=== PATIENT | male | born 1965 | race Caucasian/White ===

== ENCOUNTER → 2016-10-19 | Outpatient (CLI) | payer OTHER ==
[~2016-10-19] MED LIST: 'TENORMIN50 MG PO; ASPIRIN LITE C325 MG PO; AUGMENTIN 875 M1 TAB PO; BACTRIM DS 8001 TA1 PO; BENADRYL50 MG PO; Carafate1 GM PO; DARVOCET N 1001 TAB PO; FLOMAX0.4 MG PO; FUROSEMIDE20 M1 PO; HYDROCODONE BIT1 T11 PO; KLOR-CON M1010 ME1 PO; LASIX20 MG PO; LEVOFLOXACIN500 MG PO; Motrin,Rufen400 MG PO; Motrin,Rufen800 MG PO; NORCO 5-325 TA1 EACH PO; PANTOPRAZOLE SO40 MG PO; PERCOCET 325 MG1 TA2 PO; POTASSIUM CHLO20 ME4 PO; SEPTRA DS 800 M1 TAB PO; SYMBICORT1 AE1 INH; SYMBICORT1 AER INH; VICODIN 500 MG-1 TAB PO; VICODIN ES 7501 TAB PO; ZESTRIL10 MG PO; ZOFRAN ODT4 MG SL; ZOFRAN4 MG PO
[2016-10-19 11:47] LABS: HEMATOCRIT 40.9 % (42.0-52.0); MEAN CELL VOLUME 97.1 fl (80.0-94.0); MEAN CORPUSCULAR HGB 33.3 pg (27.0-31.0); MEAN CORPUSCULAR HGB CONC 34.2 g/dl (33.0-37.0); MEAN PLATELET VOLUME 10.7 fl (9.6-12.3); RED BLOOD COUNT 4.21 10*6/uL (4.50-5.90); RED CELL DISTRI WIDTH 15.6 % (0-14.5); WHITE BLOOD COUNT 4.4 10*3/uL (4.8-10.8)
[2016-10-19 12:02] LABS: COL/EPI 122 SECONDS (86-157)
[2016-10-19 12:08] LABS: INTERNATIONAL NORM RATIO 1.1 (2.0-3.5)
== END | disposition home or self-care (01) ==
LOC: LAB 11:08
PROVIDERS: Family Medicine
DX: D69.6 Thrombocytopenia, unspecified (principal); R79.1 Abnormal coagulation profile

== ENCOUNTER → 2016-12-14 | Outpatient (CLI) | payer OTHER ==
[2016-12-14 13:40] LABS: HEMATOCRIT 39.5 % (42.0-52.0); HEMOGLOBIN 13.6 g/dl (14.0-18.0); MEAN CELL VOLUME 100.5 fl (80.0-94.0); MEAN CORPUSCULAR HGB 34.6 pg (27.0-31.0); MEAN CORPUSCULAR HGB CONC 34.4 g/dl (33.0-37.0); MEAN PLATELET VOLUME 11.4 fl (9.6-12.3); RED BLOOD COUNT 3.93 10*6/uL (4.50-5.90); RED CELL DISTRI WIDTH 14.1 % (0-14.5); WHITE BLOOD COUNT 4.2 10*3/uL (4.8-10.8)
[2016-12-14 14:00] LABS: ALBUMIN 3.1 gm/dl (3.1-4.5); ALKALINE PHOSPHATASE 182 U/L (45-117); BILIRUBIN, DIRECT 0.4 mg/dL (0.0-0.2); BUN 7 mg/dl (7-24); CHLORIDE 106 mmol/L (98-107); CREATININE 1.07 mg/dL (0.70-1.30); POTASSIUM 3.6 mmol/L (3.5-5.1); SGOT/AST 38 IU/L (3-35); SGPT/ALT 27 U/L (12-78); SODIUM 143 mmol/L (136-145); TOTAL PROTEIN 6.7 gm/dL (6.4-8.2)
== END | disposition home or self-care (01) ==
LOC: LAB 12:56
PROVIDERS: Internal Medicine Gastroenterology
DX: K70.31 Alcoholic cirrhosis of liver with ascites (principal); D64.9 Anemia, unspecified

== ENCOUNTER → 2016-12-22 | Outpatient (CLI) | payer OTHER | END | disposition home or self-care (01) | LOC: US 03:01 | DX: K70.31 Alcoholic cirrhosis of liver with ascites (principal); R10.11 Right upper quadrant pain ==

== ENCOUNTER → 2017-01-07 | Outpatient (CLI) | payer OTHER | END | disposition home or self-care (01) | LOC: MRI 08:00 | DX: E27.9 Disorder of adrenal gland, unspecified (principal) ==

== ENCOUNTER 2017-05-04 16:27 | Emergency (ER) | payer OTHER ==
[~2017-05-04] VITALS: Ht 180.3 cm; Wt 129.3 kg
[2017-05-04] MEDS ORDERED: FLONASE ALLERG9.9 ML NAS (19:16)
[2017-05-04] MEDS ORDERED: PROAIR HFA8.5 GM INH (19:16)
[2017-05-04] MEDS ORDERED: TESSALON PERLE100 M1 PO (19:16)
== END 2017-05-04 19:26 | disposition home or self-care (01) ==
LOC: ED 16:27
DX: B34.9 Viral infection, unspecified (principal); Z88.8 Allergy status to other drugs, medicaments and biological substances; Z79.899 Other long term (current) drug therapy; Z90.89 Acquired absence of other organs

== ENCOUNTER 2017-05-13 20:24 | Inpatient (IN) | payer OTHER ==
[~2017-05-13] VITALS: Ht 182.8 cm; Wt 141.8 kg
--- NOTE | ~2017-05-13 | WRIGHTHP ---
[place], [place] PATIENT HISTORY AND PHYSICAL EXAM NAME: ILEANA CASTORENA [facility] #: [id number] UNIT #: [id number] ROOM: 504 DOCTOR: GARETT KAMINSKI MD BIRTHDATE: [birth year] DOS: 05/14/2017 HISTORY OF PRESENT ILLNESS: 1. The patient is a 52-year-old gentleman with a past medical history of normocytic anemia, mixed hyperlipidemia, hyperbilirubinemia along with elevated AST and alkaline phosphatase. 3. History of neutropenia and thrombocytopenia. 4. Diabetes mellitus and hyperglycemia. 5. History of alcohol dependence. 6. Benign essential hypertension. The patient presented to [facility] with feeling unwell for about 20 days. He felt like he had flu symptoms. The patient also had developed shortness of breath which was not resolving with outpatient treatment. Finally, the patient was seen in the Emergency Department and recommended for admission for acute exacerbation of COPD. The patient has been treated with corticosteroids and antibiotics along with bronchodilators and his breathing is improving. REVIEW OF SYSTEMS: LUNGS: Increasing shortness of breath. GASTROINTESTINAL: No nausea, vomiting, diarrhea or constipation. CARDIOVASCULAR: No chest pains or palpitations. FAMILY AND SOCIAL HISTORY: The patient lives at home with his and children. Denies smoking cigarettes, alcohol and drug abuse, but he does have history of alcohol dependence. FAMILY HISTORY: Noncontributory. HOME MEDICATIONS: The patient takes albuterol inhaler, Flonase, Tessalon Perles, Lasix, ibuprofen, multivitamins and potassium at home. ALLERGIES: Known allergies to lisinopril, which is AYE inhibitor. PHYSICAL EXAMINATION: GENERAL: Alert and oriented x 3, in no visible distress. VITAL SIGNS: Blood pressure 128/54, breathing 20 times per minute, heart rate ranging between 98-108 beats per minute, afebrile. HEENT AND NECK: Extraocular movements are intact. Sclerae are anicteric. Oral mucosa is moist and clean. No obvious facial weakness. Neck is supple without any lymphadenopathy. No thyromegaly. No JVD. No carotid arterial bruits. LUNGS: Clear to auscultation. No wheezing. No rhonchi. CARDIOVASCULAR SYSTEM: Heart rate is regular in rate and rhythm. S1 and S2 normally audible. No significant murmur or any other abnormal cardiac sounds. ABDOMEN: Soft, nontender. No obvious organomegaly. Bowel sounds are present. No obvious herniation. EXTREMITIES: Without significant cyanosis or edema. Warm to touch. CENTRAL NERVOUS SYSTEM: Alert and oriented x 3. Cranial nerves II-XII are intact. Speech is normal. The patient is able to move all extremities. Normal [place], [place] PATIENT HISTORY AND PHYSICAL EXAM NAME: ILEANA CASTORENA UNIT #: [id number] ROOM: [facility] DOCTOR: GARETT KAMINSKI MD BIRTHDATE: [birth year] muscle strength. Deep tendon reflexes are equal on both sides. Plantars were downgoing. LABORATORY DATA: X-ray of the lumbar spine showed no acute abnormality. Chest x-ray showing minimal left basilar atelectasis. Hemoglobin 13.5, no leukocytosis, lactic acid level was normal. IMPRESSION: Acute exacerbation of underlying disease with increased shortness of breath and failure of outpatient treatment for last 20 days. The patient was admitted and started on treatment with corticosteroids, oxygen, nebulizer treatments with DuoNeb and antibiotic and his breathing started improving. 1. Left basilar atelectasis versus pneumonia to be treated with ____, incentive spirometry and antibiotics. History of alcohol dependence. I will keep him on thiamine and follow closely. The patient is not claiming any recent alcohol use. 2. History of benign essential hypertension. Blood pressures will be monitored and treated accordingly. 3. History of nicotine smoke dependence and alcohol dependence. The patient encouraged to stop and will be monitored closely. GARETT KAMINSKI MD CM:HISPHYS:PATIENT HISTORY AND PHYSICAL EXAMINATION 39 18 GARETT KAMINSKI MD 05/14/172218 interface
--- NOTE | ~2017-05-13 | EKG ---
[place], [place] ELECTROCARDIOGRAM REPORT NAME: ILEANA CASTORENA UNIT #: [id number] ROOM: 504 DOCTOR: TAYO ELLIS,VIC BIRTHDATE: [birth year] DOS: 05/14/2017 TIME: 2159 hours. IMPRESSION: 1. Sinus rhythm. 2. Sinus tachycardia. 3. Poor R-wave progression. 4. Nonspecific ST-T changes. 5. Normal QT interval. VIC CR MD CM:EKGRPT:ELECTROCARDIOGRAM REPORT [id number] VIC CR MD
--- NOTE | ~2017-05-13 | CON ---
[place], [place] REPORT OF CONSULTATION [id number] UN[facility] #: [id number] ROOM: 504 DOCTOR: MICHELLE SAUCEDA MDLALITA BIRTHDATE: [birth year] DOS: 05/16/2017 PULMONARY CONSULTATION, EVALUATION, AND MANAGEMENT REASON FOR CONSULTATION: Assess the patient for abnormal respiratory symptoms. HISTORY OF PRESENT ILLNESS: This is a 52-year-old white male with a past medical history of chronic obesity and other medical issues. He has been admitted to the hospital under the care of Dr. Heath. The patient stated that he had developed acute flu-like symptoms about 3 weeks ago prior to admission to the hospital. The symptoms started on 04/24/2017 with general body aches and pains, nonproductive cough with fever and fatigue. The patient stated that symptoms have never been resolved. He was noted with increased shortness of breath, which has been noted progressive. The coughing has been described intermittently. Denies symptoms of chest pain or hemoptysis with that. The coughing has been noted with only small amount of sputum expectoration at times. Denies symptoms of chest trauma. The patient has been currently treated for the acute exacerbation of COPD under the care of Dr. Heath. REVIEW OF SYSTEMS: CONSTITUTIONAL: He does have symptoms of fatigue and tiredness that remains persistent, but there were no symptoms of fevers and chills reported. EYES: Denies any burning, redness, or tenderness. EARS, NOSE, AND THROAT SYMPTOMS. No sore throat, otalgia, postnasal drainage, epistaxis, or ear discharge. CARDIOVASCULAR: Denies any edema of the lower extremities, any pain of the lower extremities, any symptoms of angina or palpitations. GASTROINTESTINAL: Chronic severe obesity. Denies symptoms of nausea, vomiting, diarrhea, dysphagia, abdominal pain, hematemesis, melena, hematochezia, or any abnormal weight loss history. GENITOURINARY: No dysuria, suprapubic pain, or hematuria. SKIN: Denies lesions or rashes. CENTRAL NERVOUS SYSTEM: No dizziness, headache, diplopia, or syncopal episode. Remaining systems were reviewed, they were noted all negative. PAST MEDICAL HISTORY: 1. COPD. 2. Nephrolithiasis. 3. Liver cirrhosis. 4. Chronic thrombocytopenia. 5. Essential hypertension. 6. Severe obesity. 7. History of nicotine abuse. 8. Past history of alcohol use as well. SOCIAL HISTORY: The patient is , has one child, lives at home. He used to drink alcohol, which has been discontinued over a year ago. Tobacco use noted from age of [age] years old as half a pack of cigarettes per day that has been discontinued as per patient 3 years ago. Denies any occupation related [place], [place] REPORT OF CONSULTATION NAME: ILEANA CASTORENA UNIT #: [id number] ROOM: [facility] DOCTOR: LALITA COLLAZO MD BIRTHDATE: [birth year] pulmonary exposure. PAST SURGICAL HISTORY: Essentially no major surgeries. MEDICATIONS: The medication, which has been used by the patient at this time noted use of DuoNeb q.6h., Lasix 20 mg p.o. daily, ibuprofen, and Colace. DRUG ALLERGIES: LISINOPRIL. PHYSICAL EXAMINATION: GENERAL: A 52-year-old male who has been currently noted to be awake and alert, without any acute distress. Height of 6 feet, weight of 226 pounds, BMI 30.7. VITAL SIGNS: Normal temperature since admission, respiratory rate of 18-20, heart rate of 96-114, blood pressure 156/76-144/84. Oxygen saturation of the patient recorded as 97% saturation on room air at rest. HEENT: Chronic obesity. Head was atraumatic. Eye nonicterus. Decreased posterior pharyngeal space. NECK: Supple. CARDIOVASCULAR: S1, S2 audible. LUNGS: Moderate decreased breath sounds noted in the lungs bilaterally. ABDOMEN: Noted with chronic obesity. Bowel sounds present. Without any tenderness. CENTRAL NERVOUS SYSTEM: Cranial nerves 2-12 intact. MUSCULOSKELETAL: The patient was noted without any acute deformities. SKIN: Visible skin, no lesions or rashes. LABORATORY DATA: The CBC on 05/13/2017 of the patient was essentially noted, platelet count of 64,000, hemoglobin 13.5, hematocrit 39.3, normal WBC count. Nasal washings, influenza A and B of the patient on admission of 05/13/2017 was negative. INR of the patient 1.2 on admission. The LFTs, which was done on the patient on admission, AST 48, alkaline phosphatase 241. BMP for this patient, normal BUN and creatinine. The blood culture from 05/13/2017 shows no bacterial growth. The CBC of the patient this morning essentially noted almost the same except platelet count mildly further decreased to 58,000. IMAGING STUDIES: Chest x-ray of the patient, 2-view, which was done on 05/13/2017 was noted with small area of basilar atelectasis in the left lower lung. There was no finding of congestive heart failure, large pleural fluid, or any abnormal pulmonary infiltration. IMPRESSION: 1. The patient who has been admitted to the hospital with acute viral bronchitis leading to exacerbation of chronic obstructive pulmonary disease without any active bacterial infection noted at this time. 2. Chronic severe obesity with suspected obstructive sleep apnea disorder as well. 3. Cough, wheezing, and shortness of breath related to exacerbation of chronic obstructive pulmonary disease has not been improved significantly. 4. History of chronic thrombocytopenia with history of liver cirrhosis. 5. Chronic obesity as well. [place], [place] REPORT OF CONSULTATION NAME: ILEANA CASTORENA UNIT #: [id number] ROOM: [facility] DOCTOR: LALITA COLLAZO MD BIRTHDATE: [birth year] 6. History of past nicotine use and alcohol use. PLAN OF TREATMENT: Start the patient on Solu-Medrol 40 mg b.i.d. dosing. Continue bronchodilators every 6 hours for the patient at the present time and q. 4 hours p.r.n. will be ordered. Bronchodilator for the patient will be continued with oxygen supplementation if the oxygen saturation noted less than 92%. Other supportive therapy, plan of management as well. Usual care. Additional treatment changes will be done on the patient based on the progression of the illness. Reassess the patient tomorrow morning. Obtain another chest x-ray of the patient, PA and lateral view in the morning for the small area of atelectasis noted in the left lower, most likely secondary to mucus impaction. Mucinex 600 mg p.o. b.i.d. will be ordered as well to help clear secretions. If the finding currently remains persistent, additional change in treatment will be ordered accordingly. Thanks for allowing me to participate in the care of this patient. LALITA MARTINEZ MD CM:CONSTR:REPORT OF CONSULTATION 1801 05/17/17 0241 interface
--- NOTE | ~2017-05-13 | PR ---
[place], [place] PROGRESS NOTE NAME: ILEANA CASTORENA UNIT #: [id number] ROOM: 504 DOCTOR: LALITA COLLAZO MD BIRTHDATE: [birth year] DOS: 05/17/2017 PULMONARY PROGRESS NOTE SUBJECTIVE: He has been noted comfortable, reported reduction in symptoms of shortness of breath. There was no chest pain. The cough has been noted without any sputum expectoration. Denies any wheezing. OBJECTIVE: VITAL SIGNS: For the patient, which have been recorded, showed normal temperature, respiratory rate of 18, heart rate 86, blood pressure 161/91. Pulse oxygen saturation of the patient recorded on room air 94% saturation. HEENT: Chronic severe obesity. Head was atraumatic. NECK: Supple. CARDIOVASCULAR: S1, S2 audible. LUNGS: The patient was noted without any wheezing or crackles at the present time. ABDOMEN: Soft, nontender. EXTREMITIES: The patient was noted with chronic obesity with mild edema. IMAGING STUDIES: Chest x-ray of the patient, PA and lateral view, was done today, review shows evidence of small bilateral pleural fluid noted little bit larger on the left than the right side; however, the fluid was still not noted significant amount. IMPRESSION: 1. The patient with current resolution of the respiratory symptoms with reduction of coughing, shortness of breath, with bilateral small pleural fluid, most likely related to the congestive heart failure. 2. Acute tracheobronchitis with exacerbation of chronic obstructive pulmonary disease. 3. Chronic thrombocytopenia related to liver cirrhosis. PLAN OF MANAGEMENT: Diuretic therapy of the patient will be continued. The dose of Solu-Medrol will be decreased to 40 mg daily dosing. Cardiac workup of the patient with echocardiogram noted in progress at this time. Monitor results of this. All other supportive plan of management and care plan. [place], [place] PROGRESS NOTE NAME: ILEANA CASTORENA UNIT #: [id number] ROOM: 504 DOCTOR: LALITA COLLAZO MD BIRTHDATE: [birth year] LALITA MARTINEZ MD CM:PNTRANS 1817 LALITA SAUCEDA MD 05/18/17 0316 interface
--- NOTE | ~2017-05-13 | PR ---
[place], [place] PROGRESS NOTE [id number] UN[facility] #: [id number] ROOM: 504 DOCTOR: GARETT KAMINSKI MD BIRTHDATE: [birth year] DOS: 05/15/2017 SUBJECTIVE: The patient continues to complain of shortness of breath and feels that he has pneumonia, which was not seen on the chest x-ray at admission. PHYSICAL EXAMINATION: VITAL SIGNS: Blood pressure /72, heart rate 103 beats per minute, breathing 20 times per minute, temperature 98.5 degrees Fahrenheit. GENERAL: Generalized weakness and obesity. HEENT AND NECK: Exam within normal limits. CARDIOVASCULAR SYSTEM: Heart rate is regular in rate and rhythm. S1 and S2 normally audible. LUNGS: Clear to auscultation. ABDOMEN: Soft, nontender. No obvious organomegaly. Bowel sounds are present. EXTREMITIES: Without significant cyanosis or edema. IMPRESSION: 1. The patient continues to complain of acute back pain since he fell down and x-rays did not show any fractures. The patient was given multiple medications Dilaudid IV, which has relieved his pain. The patient was also given Toradol injection and earlier on Tylenol with ibuprofen. 2. Acute exacerbation of chronic obstructive pulmonary disease, which is being treated and the patient appears to be breathing much better and his chest x-ray did not show any significant abnormality except for some atelectasis at the left base. The patient thinks he has pneumonia like last time he had and was not seen on the chest x-ray. I will consult Dr. Dillon, the senior care assistant to evaluate the patient. 3. Benign essential hypertension. Blood pressures are being monitored and treated and staying normal. 4. Type 2 diabetes mellitus. Blood sugars were controlled. 5. Nicotine and alcohol dependence in the past. The patient has been encouraged to stay off. GARETT KAMINSKI MD CM:PNTRANS 1709 GARETT KAMINSKI MD 05/16/17 0108 interface
[~2017-05-13 20:24] MED LIST changes: +FLONASE ALLERG9.9 ML NAS; +PROAIR HFA8.5 GM INH; +TESSALON PERLE100 M1 PO
[2017-05-13 20:45] VITALS: BP 130/85
[2017-05-13 21:57] VITALS: BP 134/83
[2017-05-13 22:03] LABS: BASO % 0.3 % (0.0-1.0); EOS # 0.2 10*3/uL (0.0-0.4); EOS % 2.7 % (1.0-4.0); HEMATOCRIT 39.3 % (42.0-52.0); HEMOGLOBIN 13.5 g/dl (14.0-18.0); LYMPH % 13.3 % (27.0-41.0); MEAN CELL VOLUME 97.3 fl (80.0-94.0); MEAN CORPUSCULAR HGB 33.4 pg (27.0-31.0); MEAN CORPUSCULAR HGB CONC 34.4 g/dl (33.0-37.0); MEAN PLATELET VOLUME 10.3 fl (9.6-12.3); MONO # 0.7 10*3/uL (0.1-1.0); MONO % 9.4 % (3.0-9.0); NEUT # 5.5 10*3/uL (2.3-7.9); PLATELET COUNT AUTOMATED 64 10*3/uL (130-400); RED BLOOD COUNT 4.04 10*6/uL (4.50-5.90); RED CELL DISTRI WIDTH 14.3 % (0-14.5); WHITE BLOOD COUNT 7.4 10*3/uL (4.8-10.8)
[2017-05-13 22:08] VITALS: BP 141/81
[2017-05-13 22:15] LABS: ACT PARTIAL THROMBO TIME 30.5 SECONDS (20.8-31.5); INTERNATIONAL NORM RATIO 1.2 (2.0-3.5)
[2017-05-13 22:17] LABS: ALBUMIN 3.2 gm/dl (3.1-4.5); ALKALINE PHOSPHATASE 241 U/L (45-117); BUN 9 mg/dl (7-24); CHLORIDE 105 mmol/L (98-107); CREATININE 1.23 mg/dL (0.70-1.30); LIPASE 394 U/L (73-393); POTASSIUM 3.6 mmol/L (3.5-5.1); SGOT/AST 49 IU/L (3-35); SGPT/ALT 34 U/L (12-78); SODIUM 141 mmol/L (136-145); TOTAL PROTEIN 6.7 gm/dL (6.4-8.2)
[2017-05-13 22:19] LABS: TROPONIN I < 0.015 ng/ml (<0.045)
[2017-05-13 22:46] VITALS: BP 156/87
[2017-05-13 23:48] VITALS: BP 149/76
[2017-05-14 00:43] VITALS: BP 146/86
[2017-05-14 01:25] VITALS: BP 147/66
[2017-05-14] MEDS ORDERED: CENTRUM SILVER1 EACH PO (02:00)
[2017-05-14 08:00] VITALS: BP 160/74
[2017-05-14 12:00] VITALS: BP 143/58
[2017-05-14 16:00] VITALS: BP 128/54
[2017-05-14 20:00] VITALS: BP 129/50
[2017-05-15] VITALS: BP 153/61
[2017-05-15 08:00] VITALS: BP 156/76
[2017-05-15 12:00] VITALS: BP 145/80
[2017-05-15 16:00] VITALS: BP 143/72
[2017-05-15 20:00] VITALS: BP 156/83
[2017-05-16] VITALS: BP 137/79
[2017-05-16 06:58] LABS: BASO % 0.2 % (0.0-1.0); EOS # 0.3 10*3/uL (0.0-0.4); HEMATOCRIT 36.5 % (42.0-52.0); HEMOGLOBIN 12.3 g/dl (14.0-18.0); LYMPH % 20.2 % (27.0-41.0); MEAN CELL VOLUME 98.6 fl (80.0-94.0); MEAN CORPUSCULAR HGB 33.2 pg (27.0-31.0); MEAN CORPUSCULAR HGB CONC 33.7 g/dl (33.0-37.0); MEAN PLATELET VOLUME 10.9 fl (9.6-12.3); MONO # 0.5 10*3/uL (0.1-1.0); MONO % 10.2 % (3.0-9.0); NEUT # 3.2 10*3/uL (2.3-7.9); PLATELET COUNT AUTOMATED 58 10*3/uL (130-400); RED CELL DISTRI WIDTH 14.1 % (0-14.5)
[2017-05-16 08:00] VITALS: BP 144/84
[2017-05-16 12:00] VITALS: BP 156/87
[2017-05-16 14:16] VITALS: BP 169/83
[2017-05-16 16:00] VITALS: BP 139/73
[2017-05-16 20:00] VITALS: BP 130/71
[2017-05-17] VITALS: BP 160/81
[2017-05-17 07:03] LABS: EOS % 0.2 % (1.0-4.0); HEMATOCRIT 39.5 % (42.0-52.0); HEMOGLOBIN 13.5 g/dl (14.0-18.0); LYMPH # 0.5 10*3/uL (1.3-4.4); LYMPH % 11.1 % (27.0-41.0); MEAN CELL VOLUME 96.6 fl (80.0-94.0); MEAN CORPUSCULAR HGB CONC 34.2 g/dl (33.0-37.0); MEAN PLATELET VOLUME 11.4 fl (9.6-12.3); MONO # 0.1 10*3/uL (0.1-1.0); MONO % 2.1 % (3.0-9.0); PLATELET COUNT AUTOMATED 68 10*3/uL (130-400); RED BLOOD COUNT 4.09 10*6/uL (4.50-5.90); RED CELL DISTRI WIDTH 13.4 % (0-14.5); WHITE BLOOD COUNT 4.7 10*3/uL (4.8-10.8)
[2017-05-17 07:28] LABS: CHLORIDE 102 mmol/L (98-107); POTASSIUM 4.9 mmol/L (3.5-5.1); SODIUM 134 mmol/L (136-145)
[2017-05-17 07:36] LABS: ALBUMIN 2.8 gm/dl (3.1-4.5); ALKALINE PHOSPHATASE 212 U/L (45-117); BUN 19 mg/dl (7-24); CREATININE 1.18 mg/dL (0.70-1.30); SGOT/AST 39 IU/L (3-35); SGPT/ALT 33 U/L (12-78); TOTAL PROTEIN 6.6 gm/dL (6.4-8.2)
[2017-05-17 12:00] VITALS: BP 161/91
[2017-05-17 16:00] VITALS: BP 147/78
[2017-05-17 20:00] VITALS: BP 159/90
== END 2017-05-17 23:10 | disposition left against medical advice (07) | DRG 191 ==
LOC: ED 20:24 → 5E 05-14 00:32 → EDHOLD 05-14 00:32 → 5E 05-14 00:49
PROVIDERS: Internal Medicine; Nurse Practitioner Family
DX: J44.0 Chronic obstructive pulmonary disease with (acute) lower respiratory infection (principal); J90 Pleural effusion, not elsewhere classified; D69.6 Thrombocytopenia, unspecified; E87.1 Hypo-osmolality and hyponatremia; K70.30 Alcoholic cirrhosis of liver without ascites; J98.11 Atelectasis; J44.1 Chronic obstructive pulmonary disease with (acute) exacerbation; B34.9 Viral infection, unspecified; Z78.9 Other specified health status; I10 Essential (primary) hypertension; R60.0 Localized edema; R73.9 Hyperglycemia, unspecified; R74.0 Nonspecific elevation of levels of transaminase and lactic acid dehydrogenase [LDH]; D53.9 Nutritional anemia, unspecified; K80.20 Calculus of gallbladder without cholecystitis without obstruction; E78.2 Mixed hyperlipidemia; F10.21 Alcohol dependence, in remission; E66.9 Obesity, unspecified; J20.8 Acute bronchitis due to other specified organisms; Z53.21 Procedure and treatment not carried out due to patient leaving prior to being seen by health care provider; Z88.8 Allergy status to other drugs, medicaments and biological substances; Z79.899 Other long term (current) drug therapy; Z87.442 Personal history of urinary calculi; Z87.01 Personal history of pneumonia (recurrent); Z68.30 Body mass index [BMI] 30.0-30.9, adult

== ENCOUNTER 2017-12-24 11:21 | Emergency (ER) | payer OTHER ==
[~2017-12-24] VITALS: Wt 106.6 kg
[~2017-12-24 11:21] MED LIST changes: +CENTRUM SILVER1 EACH PO
[2017-12-24] MEDS ORDERED: CIPRO500 MG PO (11:28)
[2017-12-26] MEDS ORDERED: CEPHALEXIN500 M1 PO (00:28)
== END 2017-12-24 12:00 | disposition home or self-care (01) ==
LOC: ED 11:21
DX: S91.331A Puncture wound without foreign body, right foot, initial encounter (principal); Z23 Encounter for immunization; J44.9 Chronic obstructive pulmonary disease, unspecified; I10 Essential (primary) hypertension; F17.200 Nicotine dependence, unspecified, uncomplicated; Z87.442 Personal history of urinary calculi; Z88.8 Allergy status to other drugs, medicaments and biological substances; Z79.899 Other long term (current) drug therapy; X58.XXXA Exposure to other specified factors, initial encounter; Y93.89 Activity, other specified; Y92.89 Other specified places as the place of occurrence of the external cause; Y99.8 Other external cause status

== ENCOUNTER 2018-07-28 12:19 | Emergency (ER) | payer OTHER ==
[~2018-07-28] VITALS: Ht 180.3 cm; Wt 133.8 kg
[~2018-07-28 12:19] MED LIST changes: +CEPHALEXIN500 M1 PO; +CIPRO500 MG PO
== END 2018-07-28 14:29 | disposition home or self-care (01) ==
LOC: ED 12:19
DX: M77.32 Calcaneal spur, left foot (principal); Z90.89 Acquired absence of other organs; Z88.8 Allergy status to other drugs, medicaments and biological substances

== ENCOUNTER 2019-03-05 22:05 | Emergency (ER) | payer OTHER ==
[~2019-03-05] VITALS: Wt 127.0 kg
[2019-03-05] MEDS ORDERED: IBU800 MG PO (22:37)
[2019-03-05] MEDS ORDERED: PENICILLIN VK500 MG PO (22:37)
== END 2019-03-05 23:15 | disposition home or self-care (01) ==
LOC: ED 22:05
DX: K04.7 Periapical abscess without sinus (principal); I10 Essential (primary) hypertension; Z87.891 Personal history of nicotine dependence; Z88.8 Allergy status to other drugs, medicaments and biological substances

== ENCOUNTER 2019-11-23 19:40 | Inpatient (IN) | payer SELFPAY ==
[~2019-11-23] VITALS: Ht 180.3 cm; Wt 131.2 kg
[~2019-11-23 19:40] MED LIST changes: +IBU800 MG PO; +PENICILLIN VK500 MG PO
[2019-11-23 19:43] VITALS: BP 177/79
[2019-11-23 20:08] LABS: BASO % 0.4 % (0.0-1.0); EOS % 0.6 % (1.0-4.0); HEMATOCRIT 38.1 % (42.0-52.0); LYMPH # 0.5 10*3/uL (1.3-4.4); MEAN CELL VOLUME 93.8 fl (80.0-94.0); MEAN CORPUSCULAR HGB 30.3 pg (27.0-31.0); MEAN CORPUSCULAR HGB CONC 32.3 g/dl (33.0-37.0); MEAN PLATELET VOLUME 10.9 fl (9.6-12.3); MONO # 0.6 10*3/uL (0.1-1.0); MONO % 12.5 % (3.0-9.0); NEUT # 3.7 10*3/uL (2.3-7.9); NEUT % 76.3 % (47.0-73.0); PLATELET COUNT AUTOMATED 70 10*3/uL (130-400); RED BLOOD COUNT 4.06 10*6/uL (4.50-5.90); RED CELL DISTRI WIDTH 19.3 % (0-14.5); WHITE BLOOD COUNT 4.8 10*3/uL (4.8-10.8)
[2019-11-23 20:17] LABS: ACT PARTIAL THROMBO TIME 29.2 SECONDS (20.0-32.1); INTERNATIONAL NORM RATIO 1.2 (2.0-3.5)
[2019-11-23 20:23] LABS: ALBUMIN 3.2 gm/dl (3.1-4.5); ALKALINE PHOSPHATASE 166 U/L (45-117); BUN 10 mg/dl (7-24); CHLORIDE 107 mmol/L (98-107); CREATININE 1.01 mg/dL (0.70-1.30); POTASSIUM 3.9 mmol/L (3.5-5.1); SGOT/AST 79 IU/L (3-35); SGPT/ALT 40 U/L (12-78); SODIUM 137 mmol/L (136-145); TOTAL PROTEIN 6.9 gm/dL (6.4-8.2)
[2019-11-23 20:24] LABS: TROPONIN I 0.018 ng/ml (<0.045)
[2019-11-23 21:02] VITALS: BP 155/85
[2019-11-23 23:00] VITALS: BP 157/88
[2019-11-24 00:12] VITALS: BP 160/87
[2019-11-24 00:50] VITALS: BP 149/86
[2019-11-24 08:00] VITALS: BP 148/68
[2019-11-24 12:00] VITALS: BP 147/66
[2019-11-24 16:00] VITALS: BP 137/70
[2019-11-24 16:07] LABS: BODY FLUID WBC 226 /uL
[2019-11-24 17:30] LABS: BF LYMPHOCYTES 11 %; BF MACROPHAGES 70 %; BF MESOTHELIALS 4 %; BF NEUTROPHILS 15 %
[2019-11-24 20:00] VITALS: BP 167/73
[2019-11-25] VITALS: BP 132/73
[2019-11-25 06:00] LABS: ALBUMIN 2.4 gm/dl (3.1-4.5); ALKALINE PHOSPHATASE 132 U/L (45-117); BUN 11 mg/dl (7-24); CHLORIDE 106 mmol/L (98-107); CHOLESTEROL 99 mg/dL (<200); CREATININE 1.15 mg/dL (0.70-1.30); FREE T4 1.18 ng/dl (0.76-1.46); HDL CHOLESTEROL 27 mg/dl (40-60); LDL CHOLESTEROL 52 mg/dL (9-159); POTASSIUM 3.8 mmol/L (3.5-5.1); SGOT/AST 54 IU/L (3-35); SGPT/ALT 31 U/L (12-78); SODIUM 135 mmol/L (136-145); TOTAL PROTEIN 5.5 gm/dL (6.4-8.2); TRIGLYCERIDES 98 mg/dl (<150); VLDL CHOLESTEROL 20 mg/dL (6-40)
[2019-11-25 06:05] LABS: BASO % 0.3 % (0.0-1.0); EOS # 0.2 10*3/uL (0.0-0.4); EOS % 4.1 % (1.0-4.0); HEMATOCRIT 32.6 % (42.0-52.0); LYMPH # 0.6 10*3/uL (1.3-4.4); LYMPH % 15.2 % (27.0-41.0); MEAN CELL VOLUME 96.2 fl (80.0-94.0); MEAN CORPUSCULAR HGB 30.7 pg (27.0-31.0); MEAN CORPUSCULAR HGB CONC 31.9 g/dl (33.0-37.0); MEAN PLATELET VOLUME 11.3 fl (9.6-12.3); MONO # 0.5 10*3/uL (0.1-1.0); MONO % 12.5 % (3.0-9.0); NEUT # 2.5 10*3/uL (2.3-7.9); NEUT % 67.6 % (47.0-73.0); PLATELET COUNT AUTOMATED 51 10*3/uL (130-400); RED BLOOD COUNT 3.39 10*6/uL (4.50-5.90); WHITE BLOOD COUNT 3.7 10*3/uL (4.8-10.8)
[2019-11-25 08:00] VITALS: BP 128/60
[2019-11-25 12:00] VITALS: BP 131/69
[2019-11-25 16:00] VITALS: BP 116/63
[2019-11-25 20:00] VITALS: BP 116/62
[2019-11-25 21:39] LABS: BUN 8 mg/dl (7-24); CHLORIDE 108 mmol/L (98-107); CREATININE 1.04 mg/dL (0.70-1.30); POTASSIUM 3.9 mmol/L (3.5-5.1); SODIUM 137 mmol/L (136-145)
[2019-11-26] VITALS: BP 113/48
[2019-11-26 06:15] LABS: BASO % 0.3 % (0.0-1.0); EOS # 0.2 10*3/uL (0.0-0.4); EOS % 6.7 % (1.0-4.0); HEMATOCRIT 33.2 % (42.0-52.0); LYMPH # 0.5 10*3/uL (1.3-4.4); LYMPH % 16.4 % (27.0-41.0); MEAN CELL VOLUME 95.7 fl (80.0-94.0); MEAN CORPUSCULAR HGB 30.3 pg (27.0-31.0); MEAN CORPUSCULAR HGB CONC 31.6 g/dl (33.0-37.0); MEAN PLATELET VOLUME 11.4 fl (9.6-12.3); MONO # 0.4 10*3/uL (0.1-1.0); MONO % 11.8 % (3.0-9.0); NEUT # 2.1 10*3/uL (2.3-7.9); NEUT % 64.5 % (47.0-73.0); PLATELET COUNT AUTOMATED 60 10*3/uL (130-400); RED BLOOD COUNT 3.47 10*6/uL (4.50-5.90); RED CELL DISTRI WIDTH 19.1 % (0-14.5); WHITE BLOOD COUNT 3.3 10*3/uL (4.8-10.8)
[2019-11-26 06:23] LABS: ALBUMIN 2.3 gm/dl (3.1-4.5); BUN 8 mg/dl (7-24); CHLORIDE 106 mmol/L (98-107); CREATININE 0.95 mg/dL (0.70-1.30); POTASSIUM 3.6 mmol/L (3.5-5.1); SGOT/AST 50 IU/L (3-35); SGPT/ALT 29 U/L (12-78); SODIUM 136 mmol/L (136-145)
[2019-11-26 06:25] LABS: ALKALINE PHOSPHATASE 167 U/L (45-117); TOTAL PROTEIN 5.4 gm/dL (6.4-8.2)
[2019-11-26 08:00] VITALS: BP 112/60
[2019-11-26 12:00] VITALS: BP 132/66
[2019-11-26 16:00] VITALS: BP 124/64
[2019-11-26 20:00] VITALS: BP 127/57
[2019-11-27] VITALS: BP 132/61
[2019-11-27 06:41] LABS: ALBUMIN 2.3 gm/dl (3.1-4.5); BASO % 0.5 % (0.0-1.0); BUN 8 mg/dl (7-24); CHLORIDE 108 mmol/L (98-107); CREATININE 0.91 mg/dL (0.70-1.30); EOS # 0.3 10*3/uL (0.0-0.4); EOS % 6.8 % (1.0-4.0); HEMATOCRIT 33.2 % (42.0-52.0); LYMPH # 0.7 10*3/uL (1.3-4.4); LYMPH % 19.3 % (27.0-41.0); MEAN CELL VOLUME 93.3 fl (80.0-94.0); MEAN CORPUSCULAR HGB 30.9 pg (27.0-31.0); MEAN CORPUSCULAR HGB CONC 33.1 g/dl (33.0-37.0); MEAN PLATELET VOLUME 11.2 fl (9.6-12.3); MONO # 0.4 10*3/uL (0.1-1.0); MONO % 11.7 % (3.0-9.0); NEUT # 2.2 10*3/uL (2.3-7.9); NEUT % 61.2 % (47.0-73.0); PLATELET COUNT AUTOMATED 73 10*3/uL (130-400); POTASSIUM 3.7 mmol/L (3.5-5.1); RED BLOOD COUNT 3.56 10*6/uL (4.50-5.90); RED CELL DISTRI WIDTH 19.1 % (0-14.5); SGOT/AST 52 IU/L (3-35); SGPT/ALT 29 U/L (12-78); SODIUM 137 mmol/L (136-145); TOTAL PROTEIN 5.4 gm/dL (6.4-8.2); WHITE BLOOD COUNT 3.7 10*3/uL (4.8-10.8)
[2019-11-27 06:42] LABS: ALKALINE PHOSPHATASE 150 U/L (45-117)
[2019-11-27 08:00] VITALS: BP 139/68
[2019-11-27 12:00] VITALS: BP 140/63
[2019-11-27 16:00] VITALS: BP 129/57
[2019-11-27 20:00] VITALS: BP 154/64
[2019-11-28] VITALS: BP 143/72
[2019-11-28 06:45] LABS: BASO % 0.3 % (0.0-1.0); EOS # 0.2 10*3/uL (0.0-0.4); EOS % 6.2 % (1.0-4.0); LYMPH # 0.6 10*3/uL (1.3-4.4); LYMPH % 17.1 % (27.0-41.0); MEAN CELL VOLUME 96.3 fl (80.0-94.0); MEAN CORPUSCULAR HGB 30.3 pg (27.0-31.0); MEAN CORPUSCULAR HGB CONC 31.5 g/dl (33.0-37.0); MONO # 0.4 10*3/uL (0.1-1.0); MONO % 11.2 % (3.0-9.0); NEUT # 2.3 10*3/uL (2.3-7.9); NEUT % 64.9 % (47.0-73.0); PLATELET COUNT AUTOMATED 76 10*3/uL (130-400); RED BLOOD COUNT 3.53 10*6/uL (4.50-5.90); WHITE BLOOD COUNT 3.6 10*3/uL (4.8-10.8)
[2019-11-28 07:23] LABS: ALBUMIN 2.3 gm/dl (3.1-4.5); ALKALINE PHOSPHATASE 151 U/L (45-117); BUN 9 mg/dl (7-24); CHLORIDE 107 mmol/L (98-107); CREATININE 0.94 mg/dL (0.70-1.30); POTASSIUM 3.8 mmol/L (3.5-5.1); SGOT/AST 49 IU/L (3-35); SGPT/ALT 31 U/L (12-78); SODIUM 136 mmol/L (136-145); TOTAL PROTEIN 5.4 gm/dL (6.4-8.2)
[2019-11-28 08:00] VITALS: BP 134/68
[2019-11-28 08:08] LABS: HEP B CORE AB, IGM Negative (Negative); HEPATITIS B SURFACE AG Negative (Negative); HEPATITIS C VIRUS ANTIBODY <0.1 s/co (0.0-0.9)
[2019-11-28 12:00] VITALS: BP 126/64
[2019-11-28 16:00] VITALS: BP 141/73
[2019-11-28 20:00] VITALS: BP 144/64
[2019-11-29] VITALS: BP 133/59
[2019-11-29 06:53] LABS: BASO % 0.7 % (0.0-1.0); EOS # 0.2 10*3/uL (0.0-0.4); EOS % 5.1 % (1.0-4.0); HEMATOCRIT 33.8 % (42.0-52.0); LYMPH # 0.7 10*3/uL (1.3-4.4); LYMPH % 16.3 % (27.0-41.0); MEAN CELL VOLUME 94.9 fl (80.0-94.0); MEAN CORPUSCULAR HGB 30.3 pg (27.0-31.0); MEAN PLATELET VOLUME 11.1 fl (9.6-12.3); MONO # 0.6 10*3/uL (0.1-1.0); MONO % 12.6 % (3.0-9.0); NEUT # 2.8 10*3/uL (2.3-7.9); NEUT % 65.1 % (47.0-73.0); PLATELET COUNT AUTOMATED 88 10*3/uL (130-400); RED BLOOD COUNT 3.56 10*6/uL (4.50-5.90); RED CELL DISTRI WIDTH 18.7 % (0-14.5); WHITE BLOOD COUNT 4.4 10*3/uL (4.8-10.8)
[2019-11-29 07:06] LABS: ALBUMIN 2.2 gm/dl (3.1-4.5); ALKALINE PHOSPHATASE 174 U/L (45-117); BUN 11 mg/dl (7-24); CHLORIDE 107 mmol/L (98-107); CREATININE 0.96 mg/dL (0.70-1.30); SGOT/AST 56 IU/L (3-35); SGPT/ALT 31 U/L (12-78); SODIUM 136 mmol/L (136-145); TOTAL PROTEIN 5.4 gm/dL (6.4-8.2)
[2019-11-29 08:00] VITALS: BP 140/66
== END 2019-11-29 13:30 | disposition short-term general hospital (02) | DRG 871 ==
LOC: ED 19:40 → 4E 23:26 → EDHOLD 23:26 → 4E 11-24 00:03
PROVIDERS: Emergency Medicine Emergency Medical Services; Family Medicine; Hospitalist; Internal Medicine; Internal Medicine Critical Care Medicine; Student in an Organized Health Care Education/Training Program; ADMIT Internal Medicine
PROC: 0W9930Z Drainage of Right Pleural Cavity with Drainage Device, Percutaneous Approach (ICD-10-PCS; principal; 2019-11-24)
DX: A41.9 Sepsis, unspecified organism (principal); J18.9 Pneumonia, unspecified organism; J44.1 Chronic obstructive pulmonary disease with (acute) exacerbation; E44.0 Moderate protein-calorie malnutrition; J91.8 Pleural effusion in other conditions classified elsewhere; D61.818 Other pancytopenia; Z68.41 Body mass index [BMI] 40.0-44.9, adult; J44.0 Chronic obstructive pulmonary disease with (acute) lower respiratory infection; E80.6 Other disorders of bilirubin metabolism; R74.8 Abnormal levels of other serum enzymes; I10 Essential (primary) hypertension; E66.01 Morbid (severe) obesity due to excess calories; K74.60 Unspecified cirrhosis of liver; Z88.8 Allergy status to other drugs, medicaments and biological substances; Z87.442 Personal history of urinary calculi; Z79.899 Other long term (current) drug therapy

== ENCOUNTER → 2019-12-26 | Outpatient (CLI) | payer SELFPAY ==
[2019-12-26 14:07] LABS: HEMATOCRIT 33.7 % (42.0-52.0); MEAN CELL VOLUME 94.7 fl (80.0-94.0); MEAN CORPUSCULAR HGB 30.6 pg (27.0-31.0); MEAN CORPUSCULAR HGB CONC 32.3 g/dl (33.0-37.0); MEAN PLATELET VOLUME 9.9 fl (9.6-12.3); RED BLOOD COUNT 3.56 10*6/uL (4.50-5.90); RED CELL DISTRI WIDTH 18.1 % (0-14.5); WHITE BLOOD COUNT 4.9 10*3/uL (4.8-10.8)
[2019-12-26 14:41] LABS: ALBUMIN 3.3 gm/dl (3.1-4.5); BUN 20 mg/dl (7-24); CHLORIDE 100 mmol/L (98-107); CHOLESTEROL 85 mg/dL (<200); CREATININE 1.37 mg/dL (0.70-1.30); POTASSIUM 4.5 mmol/L (3.5-5.1); SGOT/AST 44 IU/L (3-35); SGPT/ALT 33 U/L (12-78); SODIUM 132 mmol/L (136-145); TOTAL PROTEIN 7.8 gm/dL (6.4-8.2); TRIGLYCERIDES 56 mg/dl (<150); VLDL CHOLESTEROL 11 mg/dL (6-40)
[2019-12-26 14:45] LABS: ALKALINE PHOSPHATASE 191 U/L (45-117); CPK 50 U/L (39-308); HDL CHOLESTEROL 32 mg/dl (40-60); LDL CHOLESTEROL 42 mg/dL (9-159)
== END | disposition home or self-care (01) ==
LOC: LAB 13:39
PROVIDERS: ATTEND Family Medicine
DX: E78.00 Pure hypercholesterolemia, unspecified (principal); K74.60 Unspecified cirrhosis of liver; R25.2 Cramp and spasm; M79.10 Myalgia, unspecified site

== ENCOUNTER → 2020-01-29 | Outpatient (CLI) | payer SELFPAY ==
[2020-01-29 11:29] LABS: ALBUMIN 2.7 gm/dl (3.1-4.5); BUN 16 mg/dl (7-24); CHLORIDE 111 mmol/L (98-107); CREATININE 1.26 mg/dL (0.70-1.30); POTASSIUM 4.3 mmol/L (3.5-5.1); SODIUM 138 mmol/L (136-145)
== END | disposition home or self-care (01) ==
LOC: LAB 10:41
PROVIDERS: ATTEND Family Medicine
DX: I10 Essential (primary) hypertension (principal)

== ENCOUNTER → 2020-02-18 | Outpatient (CLI) | payer SELFPAY | END | disposition home or self-care (01) | LOC: LAB 11:16 | PROVIDERS: ATTEND Family Medicine | DX: K72.90 Hepatic failure, unspecified without coma (principal); K74.60 Unspecified cirrhosis of liver ==

== ENCOUNTER → 2020-03-04 | Outpatient (CLI) | payer SELFPAY ==
[2020-03-04 10:33] LABS: ALBUMIN 2.7 gm/dl (3.1-4.5); ALKALINE PHOSPHATASE 170 U/L (45-117); BUN 15 mg/dl (7-24); CHLORIDE 110 mmol/L (98-107); POTASSIUM 4.4 mmol/L (3.5-5.1); SGOT/AST 35 IU/L (3-35); SGPT/ALT 22 U/L (12-78); SODIUM 141 mmol/L (136-145); TOTAL PROTEIN 6.3 gm/dL (6.4-8.2)
== END | disposition home or self-care (01) ==
LOC: LAB 09:42
PROVIDERS: ATTEND Family Medicine
DX: K72.90 Hepatic failure, unspecified without coma (principal); K74.60 Unspecified cirrhosis of liver

== ENCOUNTER 2020-09-02 14:27 | Emergency (ER) | payer SELFPAY ==
[~2020-09-02] VITALS: Ht 180.3 cm; Wt 117.9 kg
== END 2020-09-02 15:37 | disposition home or self-care (01) ==
LOC: ED 14:27
DX: L30.9 Dermatitis, unspecified (principal); L72.0 Epidermal cyst; Z88.8 Allergy status to other drugs, medicaments and biological substances

== ENCOUNTER 2020-09-12 13:57 | Inpatient (IN) | payer SELFPAY ==
[~2020-09-12] VITALS: Ht 180.3 cm; Wt 125.9 kg
[2020-09-12] VITALS (13 sets, daily range): BP systolic 114–138; BP diastolic 48–100
[2020-09-12 18:01] LABS: HEMATOCRIT 24.1 % (42.0-52.0); MEAN CELL VOLUME 79.5 fl (80.0-94.0); MEAN CORPUSCULAR HGB 22.4 pg (27.0-31.0); MEAN CORPUSCULAR HGB CONC 28.2 g/dl (33.0-37.0); MEAN PLATELET VOLUME 11.1 fl (9.6-12.3); PLATELET COUNT AUTOMATED 96 10*3/uL (130-400); RED BLOOD COUNT 3.03 10*6/uL (4.50-5.90); RED CELL DISTRI WIDTH 22.1 % (0-14.5)
[2020-09-12 18:14] LABS: ACT PARTIAL THROMBO TIME 32.5 SECONDS (20.0-32.1); INTERNATIONAL NORM RATIO 1.3 (2.0-3.5)
[2020-09-12 18:20] LABS: ALBUMIN 2.7 gm/dl (3.1-4.5); ALKALINE PHOSPHATASE 155 U/L (45-117); BUN 8 mg/dl (7-24); CHLORIDE 112 mmol/L (98-107); CREATININE 1.25 mg/dL (0.70-1.30); LIPASE 222 U/L (73-393); POTASSIUM 3.8 mmol/L (3.5-5.1); SGOT/AST 28 IU/L (3-35); SGPT/ALT 15 U/L (12-78); SODIUM 141 mmol/L (136-145); TOTAL PROTEIN 6.2 gm/dL (6.4-8.2)
[2020-09-12 18:24] LABS: MICROCYTOSIS SLIGHT; PLATELET SUFFICIENCY LOW (NORMAL); TOTAL CELLS COUNTED 100 #CELLS
[2020-09-12 18:28] LABS: TROPONIN I < 0.015 ng/ml (<0.045)
[2020-09-13] VITALS (13 sets, daily range): BP systolic 101–128; BP diastolic 40–66
[2020-09-13] MEDS ORDERED: LACTULOSE20 GM/30 M PO (01:31)
[2020-09-13] MEDS ORDERED: MAGNESIUM500 MG PO (01:31)
[2020-09-13] MEDS ORDERED: CENTRUM SILVER1 EACH PO (01:32)
[2020-09-13 02:32] LABS: BILIRUBIN Negative (Negative); BLOOD Negative (Negative); CLARITY Clear (Clear); COLOR Dark Yellow (Yellow); GLUCOSE Negative (Negative); KETONE Trace (Negative); LEUKO ESTERASE Negative (Negative); NITRITE Negative (Negative)
[2020-09-13 02:51] LABS: BACTERIA TRACE
[2020-09-13 03:06] LABS: HEMATOCRIT 23.3 % (42.0-52.0); MEAN CELL VOLUME 79.8 fl (80.0-94.0); MEAN CORPUSCULAR HGB 22.9 pg (27.0-31.0); MEAN CORPUSCULAR HGB CONC 28.8 g/dl (33.0-37.0); MEAN PLATELET VOLUME 11.2 fl (9.6-12.3); PLATELET COUNT AUTOMATED 79 10*3/uL (130-400); RED BLOOD COUNT 2.92 10*6/uL (4.50-5.90); RED CELL DISTRI WIDTH 21.4 % (0-14.5); WHITE BLOOD COUNT 2.5 10*3/uL (4.8-10.8)
[2020-09-13 03:24] LABS: INTERNATIONAL NORM RATIO 1.4 (2.0-3.5)
[2020-09-13 03:27] LABS: TOTAL CELLS COUNTED 100 #CELLS
[2020-09-13 03:28] LABS: ALBUMIN 2.3 gm/dl (3.1-4.5); ALKALINE PHOSPHATASE 135 U/L (45-117); BILIRUBIN, DIRECT 0.8 mg/dL (0.0-0.2); BUN 9 mg/dl (7-24); BURR CELLS FEW; CHLORIDE 115 mmol/L (98-107); OVALOCYTES FEW; PLATELET SUFFICIENCY LOW (NORMAL); POTASSIUM 3.8 mmol/L (3.5-5.1); SGOT/AST 22 IU/L (3-35); SGPT/ALT 13 U/L (12-78); SODIUM 144 mmol/L (136-145); TOTAL PROTEIN 5.4 gm/dL (6.4-8.2)
[2020-09-13 10:43] LABS: BASO % 0.4 % (0.0-1.0); EOS # 0.2 10*3/uL (0.0-0.4); HEMATOCRIT 24.4 % (42.0-52.0); LYMPH # 0.4 10*3/uL (1.3-4.4); LYMPH % 14.2 % (27.0-41.0); MEAN CELL VOLUME 80.8 fl (80.0-94.0); MEAN CORPUSCULAR HGB 23.5 pg (27.0-31.0); MEAN CORPUSCULAR HGB CONC 29.1 g/dl (33.0-37.0); MEAN PLATELET VOLUME 10.9 fl (9.6-12.3); MONO # 0.3 10*3/uL (0.1-1.0); MONO % 11.9 % (3.0-9.0); NEUT # 1.7 10*3/uL (2.3-7.9); NEUT % 65.1 % (47.0-73.0); PLATELET COUNT AUTOMATED 85 10*3/uL (130-400); RED BLOOD COUNT 3.02 10*6/uL (4.50-5.90); RED CELL DISTRI WIDTH 20.7 % (0-14.5); WHITE BLOOD COUNT 2.6 10*3/uL (4.8-10.8)
[2020-09-14] VITALS: BP 119/52
[2020-09-14 05:46] LABS: ALBUMIN 2.1 gm/dl (3.1-4.5); ALKALINE PHOSPHATASE 121 U/L (45-117); BUN 9 mg/dl (7-24); CHLORIDE 113 mmol/L (98-107); CREATININE 1.26 mg/dL (0.70-1.30); POTASSIUM 3.6 mmol/L (3.5-5.1); SGOT/AST 23 IU/L (3-35); SGPT/ALT 12 U/L (12-78); SODIUM 141 mmol/L (136-145); TOTAL PROTEIN 5.2 gm/dL (6.4-8.2)
[2020-09-14 05:55] LABS: BASO % 0.3 % (0.0-1.0); EOS # 0.2 10*3/uL (0.0-0.4); EOS % 6.4 % (1.0-4.0); HEMATOCRIT 23.9 % (42.0-52.0); LYMPH # 0.5 10*3/uL (1.3-4.4); LYMPH % 18.3 % (27.0-41.0); MEAN CELL VOLUME 78.4 fl (80.0-94.0); MEAN CORPUSCULAR HGB 23.6 pg (27.0-31.0); MEAN CORPUSCULAR HGB CONC 30.1 g/dl (33.0-37.0); MONO # 0.3 10*3/uL (0.1-1.0); MONO % 10.5 % (3.0-9.0); NEUT # 1.9 10*3/uL (2.3-7.9); NEUT % 64.5 % (47.0-73.0); RED BLOOD COUNT 3.05 10*6/uL (4.50-5.90); RED CELL DISTRI WIDTH 21.1 % (0-14.5)
[2020-09-14 06:44] LABS: PLATELET COUNT AUTOMATED 81 10*3/uL (130-400)
[2020-09-14 08:00] VITALS: BP 110/50
[2020-09-14 12:00] VITALS: BP 120/60
[2020-09-14 16:00] VITALS: BP 116/41
[2020-09-14 20:00] VITALS: BP 101/46; BP 114/58
[2020-09-15] VITALS (12 sets, daily range): BP systolic 105–153; BP diastolic 51–72
[2020-09-15 06:21] LABS: HEMATOCRIT 22.4 % (42.0-52.0); MEAN CELL VOLUME 79.2 fl (80.0-94.0); MEAN CORPUSCULAR HGB 23.7 pg (27.0-31.0); MEAN CORPUSCULAR HGB CONC 29.9 g/dl (33.0-37.0); PLATELET COUNT AUTOMATED 70 10*3/uL (130-400); RED BLOOD COUNT 2.83 10*6/uL (4.50-5.90); RED CELL DISTRI WIDTH 21.4 % (0-14.5); WHITE BLOOD COUNT 2.3 10*3/uL (4.8-10.8)
[2020-09-15 06:51] LABS: ALKALINE PHOSPHATASE 113 U/L (45-117); BUN 11 mg/dl (7-24); CHLORIDE 112 mmol/L (98-107); CREATININE 1.32 mg/dL (0.70-1.30); POTASSIUM 3.9 mmol/L (3.5-5.1); SGOT/AST 24 IU/L (3-35); SGPT/ALT 12 U/L (12-78); SODIUM 141 mmol/L (136-145); TOTAL PROTEIN 4.8 gm/dL (6.4-8.2)
[2020-09-15 07:25] LABS: PLATELET SUFFICIENCY LOW (NORMAL); SCHISTOCYTES FEW; TOTAL CELLS COUNTED 100 #CELLS
[2020-09-16] VITALS: BP 113/64
[2020-09-16 06:54] LABS: ALBUMIN 2.2 gm/dl (3.1-4.5); BUN 13 mg/dl (7-24); CHLORIDE 111 mmol/L (98-107); CREATININE 1.36 mg/dL (0.70-1.30); POTASSIUM 3.9 mmol/L (3.5-5.1); SGOT/AST 24 IU/L (3-35); SGPT/ALT 12 U/L (12-78); SODIUM 142 mmol/L (136-145)
[2020-09-16 06:55] LABS: ALKALINE PHOSPHATASE 105 U/L (45-117); BASO % 0.4 % (0.0-1.0); EOS # 0.2 10*3/uL (0.0-0.4); EOS % 9.3 % (1.0-4.0); HEMATOCRIT 25.1 % (42.0-52.0); LYMPH # 0.4 10*3/uL (1.3-4.4); LYMPH % 17.2 % (27.0-41.0); MEAN CELL VOLUME 79.4 fl (80.0-94.0); MEAN CORPUSCULAR HGB 24.1 pg (27.0-31.0); MEAN CORPUSCULAR HGB CONC 30.3 g/dl (33.0-37.0); MONO # 0.2 10*3/uL (0.1-1.0); MONO % 9.7 % (3.0-9.0); NEUT # 1.4 10*3/uL (2.3-7.9); PLATELET COUNT AUTOMATED 71 10*3/uL (130-400); RED BLOOD COUNT 3.16 10*6/uL (4.50-5.90); RED CELL DISTRI WIDTH 21.2 % (0-14.5); WHITE BLOOD COUNT 2.3 10*3/uL (4.8-10.8)
[2020-09-16 08:00] VITALS: BP 119/78
[2020-09-16] MEDS ORDERED: ALDACTONE25 MG PO (11:45)
[2020-09-16] MEDS ORDERED: FUROSEMIDE40 MG PO (11:45)
[2020-09-16 12:00] VITALS: BP 129/84
== END 2020-09-16 15:00 | disposition home or self-care (01) | DRG 432 ==
LOC: ED 13:57 → EDHOLD 18:51 → 4E 18:51
PROVIDERS: Emergency Medicine; Family Medicine; Student in an Organized Health Care Education/Training Program; ADMIT Internal Medicine; ATTEND Internal Medicine
PROC: 30233N1 Transfusion of Nonautologous Red Blood Cells into Peripheral Vein, Percutaneous Approach (ICD-10-PCS; 2020-09-12)
PROC: 0W9G3ZZ Drainage of Peritoneal Cavity, Percutaneous Approach (ICD-10-PCS; principal; 2020-09-15)
DX: K70.31 Alcoholic cirrhosis of liver with ascites (principal); E43 Unspecified severe protein-calorie malnutrition; R65.11 Systemic inflammatory response syndrome (SIRS) of non-infectious origin with acute organ dysfunction; D62 Acute posthemorrhagic anemia; D61.818 Other pancytopenia; E72.20 Disorder of urea cycle metabolism, unspecified; E87.2 Acidosis; J90 Pleural effusion, not elsewhere classified; F10.20 Alcohol dependence, uncomplicated; F17.210 Nicotine dependence, cigarettes, uncomplicated; E83.41 Hypermagnesemia; I10 Essential (primary) hypertension; Z88.8 Allergy status to other drugs, medicaments and biological substances; Z87.01 Personal history of pneumonia (recurrent); Z87.442 Personal history of urinary calculi; Z79.899 Other long term (current) drug therapy; Z68.38 Body mass index [BMI] 38.0-38.9, adult

== ENCOUNTER → 2020-11-04 | Outpatient (CLI) | payer SELFPAY ==
[~2020-11-04] MED LIST changes: +ALDACTONE25 MG PO; +FUROSEMIDE40 MG PO; +LACTULOSE20 GM/30 M PO; +LEVOFLOXACIN750 M2 PO; +MAGNESIUM500 MG PO
[2020-11-04 09:35] LABS: HEMATOCRIT 30.5 % (42.0-52.0); MEAN CELL VOLUME 88.9 fl (80.0-94.0); MEAN CORPUSCULAR HGB 26.8 pg (27.0-31.0); MEAN CORPUSCULAR HGB CONC 30.2 g/dl (33.0-37.0); MEAN PLATELET VOLUME 10.6 fl (9.6-12.3); RED BLOOD COUNT 3.43 10*6/uL (4.50-5.90); WHITE BLOOD COUNT 3.6 10*3/uL (4.8-10.8)
[2020-11-04 10:23] LABS: ALBUMIN 2.8 gm/dl (3.1-4.5); BUN 12 mg/dl (7-24); CHLORIDE 111 mmol/L (98-107); POTASSIUM 3.9 mmol/L (3.5-5.1); SODIUM 139 mmol/L (136-145)
[2020-11-04 10:26] LABS: ALKALINE PHOSPHATASE 147 U/L (45-117); CREATININE 1.28 mg/dL (0.70-1.30); SGOT/AST 35 IU/L (3-35); SGPT/ALT 19 U/L (12-78); TOTAL PROTEIN 6.1 gm/dL (6.4-8.2)
== END | disposition home or self-care (01) ==
LOC: LAB 09:16
PROVIDERS: ATTEND Family Medicine
DX: K74.60 Unspecified cirrhosis of liver (principal); D64.9 Anemia, unspecified

== ENCOUNTER 2020-12-19 19:50 | Emergency (ER) | payer SELFPAY ==
[~2020-12-19 19:50] MED LIST changes: -LEVOFLOXACIN750 M2 PO
[2020-12-19 21:03] LABS: BASO % 0.2 % (0.0-1.0); EOS # 0.1 10*3/uL (0.0-0.4); EOS % 2.8 % (1.0-4.0); HEMATOCRIT 31.7 % (42.0-52.0); LYMPH # 0.5 10*3/uL (1.3-4.4); LYMPH % 10.1 % (27.0-41.0); MEAN CELL VOLUME 91.1 fl (80.0-94.0); MEAN CORPUSCULAR HGB CONC 31.9 g/dl (33.0-37.0); MEAN PLATELET VOLUME 11.7 fl (9.6-12.3); MONO # 0.5 10*3/uL (0.1-1.0); MONO % 10.7 % (3.0-9.0); NEUT # 3.8 10*3/uL (2.3-7.9); PLATELET COUNT AUTOMATED 76 10*3/uL (130-400); RED BLOOD COUNT 3.48 10*6/uL (4.50-5.90); RED CELL DISTRI WIDTH 19.4 % (0-14.5)
[2020-12-19 21:18] LABS: ALBUMIN 2.7 gm/dl (3.1-4.5); CREATININE 1.48 mg/dL (0.70-1.30); TOTAL PROTEIN 6.5 gm/dL (6.4-8.2)
[2020-12-19 22:45] LABS: BILIRUBIN 1+ (Negative); BLOOD Negative (Negative); CLARITY Clear (Clear); COLOR Dark Yellow (Yellow); GLUCOSE Negative (Negative); KETONE Trace (Negative); LEUKO ESTERASE Negative (Negative); NITRITE Negative (Negative)
[2020-12-19 23:17] LABS: BACTERIA TRACE
[2020-12-20] MEDS ORDERED: LEVOFLOXACIN750 M2 PO (00:14)
== END 2020-12-20 00:22 | disposition left against medical advice (07) ==
LOC: ED 19:50
PROVIDERS: Emergency Medicine
DX: J18.9 Pneumonia, unspecified organism (principal); Z20.822 Contact with and (suspected) exposure to COVID-19; I10 Essential (primary) hypertension; Z88.8 Allergy status to other drugs, medicaments and biological substances; Z79.899 Other long term (current) drug therapy; Z87.891 Personal history of nicotine dependence

== ENCOUNTER → 2021-01-06 | Outpatient (CLI) | payer SELFPAY ==
[~2021-01-06] MED LIST changes: +BUMEX2.5 MG/10 IV; +LEVOFLOXACIN750 M2 PO; +POTASSIUM CHLO10 ME5 PO; +VITAMIN E200 UNI1 PO
[2021-01-06 09:20] LABS: HEMATOCRIT 30.3 % (42.0-52.0); MEAN CELL VOLUME 91.8 fl (80.0-94.0); MEAN CORPUSCULAR HGB 29.7 pg (27.0-31.0); MEAN CORPUSCULAR HGB CONC 32.3 g/dl (33.0-37.0); MEAN PLATELET VOLUME 10.3 fl (9.6-12.3); RED BLOOD COUNT 3.3 10*6/uL (4.50-5.90); RED CELL DISTRI WIDTH 19.2 % (0-14.5); WHITE BLOOD COUNT 3.2 10*3/uL (4.8-10.8)
[2021-01-06 09:49] LABS: ALBUMIN 2.7 gm/dl (3.1-4.5); ALKALINE PHOSPHATASE 144 U/L (45-117); BUN 16 mg/dl (7-24); CHLORIDE 109 mmol/L (98-107); CREATININE 1.17 mg/dL (0.70-1.30); POTASSIUM 4.3 mmol/L (3.5-5.1); SGOT/AST 58 IU/L (3-35); SGPT/ALT 30 U/L (12-78); SODIUM 139 mmol/L (136-145)
== END | disposition home or self-care (01) ==
LOC: LAB 09:00
PROVIDERS: ATTEND Family Medicine
DX: K72.90 Hepatic failure, unspecified without coma (principal)

== ENCOUNTER 2021-01-12 13:23 | Observation (INO) | payer SELFPAY ==
[~2021-01-12] VITALS: Ht 180.3 cm; Wt 107.0 kg
[~2021-01-12 13:23] MED LIST changes: -BUMEX2.5 MG/10 IV; -POTASSIUM CHLO10 ME5 PO; -VITAMIN E200 UNI1 PO
[2021-01-12 13:30] VITALS: BP 136/63
[2021-01-12 15:31] LABS: BASO % 0.4 % (0.0-1.0); EOS # 0.3 10*3/uL (0.0-0.4); EOS % 11.7 % (1.0-4.0); HEMATOCRIT 32.9 % (42.0-52.0); LYMPH # 0.5 10*3/uL (1.3-4.4); LYMPH % 16.7 % (27.0-41.0); MEAN CELL VOLUME 93.2 fl (80.0-94.0); MEAN CORPUSCULAR HGB 28.9 pg (27.0-31.0); MEAN PLATELET VOLUME 10.1 fl (9.6-12.3); MONO # 0.3 10*3/uL (0.1-1.0); MONO % 9.3 % (3.0-9.0); NEUT # 1.7 10*3/uL (2.3-7.9); NEUT % 61.9 % (47.0-73.0); PLATELET COUNT AUTOMATED 81 10*3/uL (130-400); RED BLOOD COUNT 3.53 10*6/uL (4.50-5.90); RED CELL DISTRI WIDTH 18.6 % (0-14.5); WHITE BLOOD COUNT 2.8 10*3/uL (4.8-10.8)
[2021-01-12 16:03] LABS: ALBUMIN 2.7 gm/dl (3.1-4.5); ALKALINE PHOSPHATASE 158 U/L (45-117); BUN 13 mg/dl (7-24); CHLORIDE 109 mmol/L (98-107); CREATININE 1.31 mg/dL (0.70-1.30); LIPASE 297 U/L (73-393); POTASSIUM 3.8 mmol/L (3.5-5.1); SGOT/AST 57 IU/L (3-35); SGPT/ALT 33 U/L (12-78); SODIUM 139 mmol/L (136-145); TOTAL PROTEIN 6.1 gm/dL (6.4-8.2); TROPONIN I < 0.015 ng/ml (<0.045)
[2021-01-12 17:28] LABS: BILIRUBIN 1+ (Negative); BLOOD Negative (Negative); CLARITY Clear (Clear); COLOR Dark Yellow (Yellow); GLUCOSE Negative (Negative); KETONE Trace (Negative); LEUKO ESTERASE Negative (Negative); NITRITE Negative (Negative); SPECIFIC GRAVITY >= 1.030 (1.001-1.030)
[2021-01-12 17:57] LABS: RBC 0-2 rbc/hpf (0-2); WBC 0-2 wbc/hpf (0-5)
[2021-01-12] MEDS ORDERED: VITAMIN E200 UNI1 PO (18:18)
[2021-01-12] MEDS ORDERED: POTASSIUM CHLO10 ME5 PO (18:19)
[2021-01-12] MEDS ORDERED: BUMEX2.5 MG/10 IV (20:52)
[2021-01-13 03:12] VITALS: BP 161/51
[2021-01-13 04:49] LABS: BUN 13 mg/dl (7-24); CHLORIDE 113 mmol/L (98-107); CREATININE 1.08 mg/dL (0.70-1.30); POTASSIUM 3.9 mmol/L (3.5-5.1); SODIUM 142 mmol/L (136-145)
[2021-01-13 07:34] LABS: ACT PARTIAL THROMBO TIME 32.2 SECONDS (20.0-32.1); INTERNATIONAL NORM RATIO 1.4 (2.0-3.5)
[2021-01-13 07:47] VITALS: BP 114/58
[2021-01-13 12:20] VITALS: BP 121/44
[2021-01-13 14:31] VITALS: BP 122/50
== END 2021-01-13 14:56 | disposition home or self-care (01) ==
LOC: ED 13:23 → EDHOLD 17:51
PROVIDERS: Emergency Medicine; ADMIT Internal Medicine; ATTEND Internal Medicine
DX: K70.31 Alcoholic cirrhosis of liver with ascites (principal); E80.6 Other disorders of bilirubin metabolism; E43 Unspecified severe protein-calorie malnutrition; I10 Essential (primary) hypertension; Z79.899 Other long term (current) drug therapy

== ENCOUNTER 2021-03-26 10:40 | Emergency (ER) | payer SELFPAY ==
[~2021-03-26 10:40] MED LIST changes: +BUMEX2.5 MG/10 IV; +POTASSIUM CHLO10 ME5 PO; +VITAMIN E200 UNI1 PO
== END 2021-03-26 11:55 | disposition home or self-care (01) ==
LOC: ED 10:40
DX: S81.811A Laceration without foreign body, right lower leg, initial encounter (principal); W22.8XXA Striking against or struck by other objects, initial encounter; Y93.89 Activity, other specified; Y92.89 Other specified places as the place of occurrence of the external cause; Y99.8 Other external cause status

== ENCOUNTER 2021-06-06 18:11 | Emergency (ER) | payer SELFPAY ==
[~2021-06-06] VITALS: Ht 180.3 cm; Wt 99.8 kg
[2021-06-06 20:57] LABS: BASO % 0.5 % (0.0-1.0); EOS # 0.1 10*3/uL (0.0-0.4); EOS % 4.8 % (1.0-4.0); HEMATOCRIT 30.9 % (42.0-52.0); LYMPH # 0.3 10*3/uL (1.3-4.4); LYMPH % 15.4 % (27.0-41.0); MEAN CELL VOLUME 90.4 fl (80.0-94.0); MEAN CORPUSCULAR HGB 29.5 pg (27.0-31.0); MEAN CORPUSCULAR HGB CONC 32.7 g/dl (33.0-37.0); MEAN PLATELET VOLUME 12.7 fl (9.6-12.3); MONO # 0.3 10*3/uL (0.1-1.0); MONO % 12.5 % (3.0-9.0); NEUT # 1.4 10*3/uL (2.3-7.9); NEUT % 66.3 % (47.0-73.0); PLATELET COUNT AUTOMATED 68 10*3/uL (130-400); RED BLOOD COUNT 3.42 10*6/uL (4.50-5.90); RED CELL DISTRI WIDTH 17.7 % (0-14.5); WHITE BLOOD COUNT 2.1 10*3/uL (4.8-10.8)
[2021-06-06 21:07] LABS: INTERNATIONAL NORM RATIO 1.4 (2.0-3.5)
[2021-06-06 21:12] LABS: ALBUMIN 2.4 gm/dl (3.1-4.5); ALKALINE PHOSPHATASE 122 U/L (45-117); BUN 15 mg/dl (7-24); CHLORIDE 110 mmol/L (98-107); CREATININE 1.32 mg/dL (0.70-1.30); LIPASE 248 U/L (73-393); POTASSIUM 3.6 mmol/L (3.5-5.1); SGOT/AST 53 IU/L (3-35); SGPT/ALT 23 U/L (12-78); SODIUM 139 mmol/L (136-145); TOTAL PROTEIN 5.9 gm/dL (6.4-8.2)
[2021-06-07] MEDS ORDERED: FUROSEMIDE40 MG PO (07:31)
[2021-06-07] MEDS ORDERED: ALDACTONE25 MG PO (07:32)
== END 2021-06-06 22:39 | disposition left against medical advice (07) ==
LOC: ED 18:11
PROVIDERS: Physician Assistant
DX: R18.8 Other ascites (principal); Z88.8 Allergy status to other drugs, medicaments and biological substances; Z79.899 Other long term (current) drug therapy; Z87.891 Personal history of nicotine dependence

== ENCOUNTER 2021-06-07 04:30 | Inpatient (IN) | payer SELFPAY ==
[~2021-06-07] VITALS: Ht 175.3 cm; Wt 103.4 kg
[2021-06-07] VITALS (9 sets, daily range): BP systolic 108–141; BP diastolic 44–80
[2021-06-07 05:36] LABS: BUN 15 mg/dl (7-24); CHLORIDE 110 mmol/L (98-107); CREATININE 1.41 mg/dL (0.70-1.30); POTASSIUM 3.7 mmol/L (3.5-5.1); SODIUM 140 mmol/L (136-145)
[2021-06-07 05:53] LABS: BASO % 0.3 % (0.0-1.0); EOS # 0.1 10*3/uL (0.0-0.4); EOS % 1.7 % (1.0-4.0); LYMPH # 0.4 10*3/uL (1.3-4.4); LYMPH % 10.1 % (27.0-41.0); MEAN CELL VOLUME 89.9 fl (80.0-94.0); MEAN CORPUSCULAR HGB 29.9 pg (27.0-31.0); MEAN CORPUSCULAR HGB CONC 33.2 g/dl (33.0-37.0); MEAN PLATELET VOLUME 12.7 fl (9.6-12.3); MONO # 0.4 10*3/uL (0.1-1.0); MONO % 10.3 % (3.0-9.0); NEUT # 2.7 10*3/uL (2.3-7.9); NEUT % 77.3 % (47.0-73.0); PLATELET COUNT AUTOMATED 56 10*3/uL (130-400); RED BLOOD COUNT 3.45 10*6/uL (4.50-5.90); RED CELL DISTRI WIDTH 17.8 % (0-14.5); WHITE BLOOD COUNT 3.5 10*3/uL (4.8-10.8)
[2021-06-07] MEDS ORDERED: FUROSEMIDE40 MG PO (07:31)
[2021-06-07] MEDS ORDERED: ALDACTONE25 MG PO (07:32)
[2021-06-08] VITALS: BP 118/71
[2021-06-08 06:30] LABS: HEMATOCRIT 27.5 % (42.0-52.0); MEAN CELL VOLUME 89.9 fl (80.0-94.0); MEAN CORPUSCULAR HGB 29.7 pg (27.0-31.0); MEAN CORPUSCULAR HGB CONC 33.1 g/dl (33.0-37.0); PLATELET COUNT AUTOMATED 46 10*3/uL (130-400); RED BLOOD COUNT 3.06 10*6/uL (4.50-5.90); RED CELL DISTRI WIDTH 17.9 % (0-14.5); WHITE BLOOD COUNT 4.1 10*3/uL (4.8-10.8)
[2021-06-08 06:50] LABS: ALBUMIN 2.1 gm/dl (3.1-4.5); ALKALINE PHOSPHATASE 87 U/L (45-117); BUN 16 mg/dl (7-24); CHLORIDE 110 mmol/L (98-107); CREATININE 1.37 mg/dL (0.70-1.30); LDH 379 U/L (87-241); POTASSIUM 3.8 mmol/L (3.5-5.1); SGOT/AST 64 IU/L (3-35); SGPT/ALT 21 U/L (12-78); SODIUM 138 mmol/L (136-145); TOTAL PROTEIN 5.3 gm/dL (6.4-8.2)
[2021-06-08 07:29] LABS: MANUAL DIFF REFLEX YES
[2021-06-08 08:00] VITALS: BP 100/40
[2021-06-08 08:06] LABS: BURR CELLS FEW; OVALOCYTES FEW; PLATELET SUFFICIENCY LOW (NORMAL); POLYCHROMASIA SLIGHT; TOTAL CELLS COUNTED 100 #CELLS
[2021-06-08 12:00] VITALS: BP 108/84
[2021-06-08 16:00] VITALS: BP 114/78
[2021-06-08 20:00] VITALS: BP 117/58
[2021-06-09 00:50] VITALS: BP 119/71
[2021-06-09 06:18] LABS: CHLORIDE 112 mmol/L (98-107); POTASSIUM 3.9 mmol/L (3.5-5.1); SODIUM 140 mmol/L (136-145)
[2021-06-09 06:19] LABS: HEMATOCRIT 28.7 % (42.0-52.0); MEAN CELL VOLUME 90.8 fl (80.0-94.0); MEAN CORPUSCULAR HGB 29.4 pg (27.0-31.0); MEAN CORPUSCULAR HGB CONC 32.4 g/dl (33.0-37.0); PLATELET COUNT AUTOMATED 47 10*3/uL (130-400); RED BLOOD COUNT 3.16 10*6/uL (4.50-5.90); RED CELL DISTRI WIDTH 17.8 % (0-14.5)
[2021-06-09 06:44] LABS: ALBUMIN 2.1 gm/dl (3.1-4.5); ALKALINE PHOSPHATASE 96 U/L (45-117); BUN 19 mg/dl (7-24); LDH 466 U/L (87-241); SGOT/AST 65 IU/L (3-35); SGPT/ALT 23 U/L (12-78); TOTAL PROTEIN 5.6 gm/dL (6.4-8.2)
[2021-06-09 06:49] LABS: MANUAL DIFF REFLEX YES
[2021-06-09 07:45] LABS: ATYPICAL LYMPHS 1 % (0-0); BASOPHILS 1 % (0-1); TOTAL CELLS COUNTED 100 #CELLS
[2021-06-09 07:46] LABS: BURR CELLS FEW; PLATELET SUFFICIENCY LOW (NORMAL); POLYCHROMASIA SLIGHT; SCHISTOCYTES FEW
[2021-06-09 07:47] LABS: OVALOCYTES FEW
[2021-06-09 08:00] VITALS: BP 112/56
[2021-06-09 12:00] VITALS: BP 98/46
[2021-06-09 12:09] LABS: BODY FLUID WBC 984 /uL
[2021-06-09 13:19] LABS: BF LYMPHOCYTES 4 %; BF MACROPHAGES 36 %; BF MESOTHELIALS 1 %; BF NEUTROPHILS 59 %
[2021-06-09 16:00] VITALS: BP 122/71
[2021-06-09 20:00] VITALS: BP 129/74
[2021-06-10] VITALS: BP 113/60
[2021-06-10 06:12] LABS: ALBUMIN 2.1 gm/dl (3.1-4.5); CREATININE 1.48 mg/dL (0.70-1.30); POTASSIUM 3.6 mmol/L (3.5-5.1); TOTAL PROTEIN 5.9 gm/dL (6.4-8.2)
[2021-06-10 06:46] LABS: HEMATOCRIT 31.7 % (42.0-52.0); MEAN CORPUSCULAR HGB CONC 31.2 g/dl (33.0-37.0); MEAN PLATELET VOLUME 13.1 fl (9.6-12.3); PLATELET COUNT AUTOMATED 53 10*3/uL (130-400); RED BLOOD COUNT 3.41 10*6/uL (4.50-5.90); RED CELL DISTRI WIDTH 17.8 % (0-14.5); WHITE BLOOD COUNT 6.1 10*3/uL (4.8-10.8)
[2021-06-10 06:50] LABS: MANUAL DIFF REFLEX YES
[2021-06-10 08:00] VITALS: BP 123/69
[2021-06-10 08:01] LABS: ATYPICAL LYMPHS 2 % (0-0); TOTAL CELLS COUNTED 100 #CELLS
[2021-06-10 08:02] LABS: BURR CELLS MODERATE; OVALOCYTES FEW; PLATELET SUFFICIENCY LOW (NORMAL); POLYCHROMASIA SLIGHT
[2021-06-10 09:46] LABS: THYROID STIM HORMONE (HS) 0.009 uIU/ml (0.358-4.75)
[2021-06-10 12:00] VITALS: BP 115/50; BP 121/71
[2021-06-10 16:00] VITALS: BP 122/56
[2021-06-10 20:00] VITALS: BP 122/75
[2021-06-11] VITALS: BP 126/66
[2021-06-11 06:32] LABS: POTASSIUM 3.4 mmol/L (3.5-5.1)
[2021-06-11 06:40] LABS: ALBUMIN 2.3 gm/dl (3.1-4.5); CREATININE 1.47 mg/dL (0.70-1.30); TOTAL PROTEIN 6.4 gm/dL (6.4-8.2)
[2021-06-11 07:18] LABS: HEMATOCRIT 33.2 % (42.0-52.0); MEAN CELL VOLUME 93.3 fl (80.0-94.0); MEAN CORPUSCULAR HGB 29.5 pg (27.0-31.0); MEAN CORPUSCULAR HGB CONC 31.6 g/dl (33.0-37.0); MEAN PLATELET VOLUME 13.4 fl (9.6-12.3); RED BLOOD COUNT 3.56 10*6/uL (4.50-5.90); RED CELL DISTRI WIDTH 17.7 % (0-14.5); WHITE BLOOD COUNT 7.8 10*3/uL (4.8-10.8)
[2021-06-11 07:20] LABS: MANUAL DIFF REFLEX YES
[2021-06-11 07:21] LABS: PLATELET COUNT AUTOMATED 69 10*3/uL (130-400)
[2021-06-11 07:24] LABS: ATYPICAL LYMPHS 1 % (0-0); BURR CELLS FEW; PLATELET SUFFICIENCY LOW (NORMAL); POLYCHROMASIA SLIGHT; TOTAL CELLS COUNTED 100 #CELLS
[2021-06-11 07:25] LABS: ROULEAUX SLIGHT; SCHISTOCYTES FEW
[2021-06-11 08:00] VITALS: BP 117/60
[2021-06-11 12:00] VITALS: BP 117/56
[2021-06-11 16:00] VITALS: BP 129/61
[2021-06-11 20:00] VITALS: BP 113/59
[2021-06-12] VITALS: BP 124/68
[2021-06-12 06:02] LABS: ALBUMIN 2.3 gm/dl (3.1-4.5); CREATININE 1.54 mg/dL (0.70-1.30); TOTAL PROTEIN 6.2 gm/dL (6.4-8.2)
[2021-06-12 06:20] LABS: BASO % 0.1 % (0.0-1.0); HEMATOCRIT 34.3 % (42.0-52.0); LYMPH # 0.4 10*3/uL (1.3-4.4); LYMPH % 5.4 % (27.0-41.0); MEAN CELL VOLUME 92.2 fl (80.0-94.0); MEAN CORPUSCULAR HGB CONC 31.5 g/dl (33.0-37.0); MEAN PLATELET VOLUME 12.5 fl (9.6-12.3); MONO # 0.6 10*3/uL (0.1-1.0); MONO % 8.6 % (3.0-9.0); NEUT # 5.9 10*3/uL (2.3-7.9); NEUT % 85.3 % (47.0-73.0); PLATELET COUNT AUTOMATED 70 10*3/uL (130-400); RED BLOOD COUNT 3.72 10*6/uL (4.50-5.90); RED CELL DISTRI WIDTH 17.3 % (0-14.5); WHITE BLOOD COUNT 6.9 10*3/uL (4.8-10.8)
[2021-06-12 07:43] VITALS: BP 137/65
[2021-06-12 11:35] VITALS: BP 114/64
[2021-06-12 16:00] VITALS: BP 101/53
[2021-06-12 20:00] VITALS: BP 125/63
[2021-06-13] VITALS: BP 148/74
[2021-06-13 06:51] LABS: ALBUMIN 2.4 gm/dl (3.1-4.5); CREATININE 1.65 mg/dL (0.70-1.30); POTASSIUM 3.6 mmol/L (3.5-5.1); TOTAL PROTEIN 6.6 gm/dL (6.4-8.2)
[2021-06-13 07:16] LABS: BASO % 0.1 % (0.0-1.0); EOS # 0.3 10*3/uL (0.0-0.4); EOS % 2.5 % (1.0-4.0); HEMATOCRIT 35.4 % (42.0-52.0); LYMPH # 0.8 10*3/uL (1.3-4.4); LYMPH % 7.4 % (27.0-41.0); MEAN CELL VOLUME 91.5 fl (80.0-94.0); MEAN CORPUSCULAR HGB 29.2 pg (27.0-31.0); MEAN CORPUSCULAR HGB CONC 31.9 g/dl (33.0-37.0); MEAN PLATELET VOLUME 13.1 fl (9.6-12.3); MONO # 1.3 10*3/uL (0.1-1.0); MONO % 12.1 % (3.0-9.0); NEUT # 8.5 10*3/uL (2.3-7.9); NEUT % 77.2 % (47.0-73.0); PLATELET COUNT AUTOMATED 89 10*3/uL (130-400); RED BLOOD COUNT 3.87 10*6/uL (4.50-5.90); RED CELL DISTRI WIDTH 17.6 % (0-14.5)
[2021-06-13 08:00] VITALS: BP 134/71
[2021-06-13 12:00] VITALS: BP 105/55
[2021-06-13 16:00] VITALS: BP 106/58
[2021-06-13 20:00] VITALS: BP 109/56
[2021-06-14] VITALS: BP 112/55
[2021-06-14 06:20] LABS: POTASSIUM 4.1 mmol/L (3.5-5.1)
[2021-06-14 06:25] LABS: CREATININE 1.59 mg/dL (0.70-1.30)
[2021-06-14 06:29] LABS: BASO % 0.1 % (0.0-1.0); EOS # 0.5 10*3/uL (0.0-0.4); EOS % 6.8 % (1.0-4.0); LYMPH # 0.7 10*3/uL (1.3-4.4); LYMPH % 9.3 % (27.0-41.0); MEAN CELL VOLUME 90.9 fl (80.0-94.0); MEAN CORPUSCULAR HGB 29.1 pg (27.0-31.0); MEAN PLATELET VOLUME 13.9 fl (9.6-12.3); MONO % 13.6 % (3.0-9.0); NEUT # 5.3 10*3/uL (2.3-7.9); NEUT % 69.3 % (47.0-73.0); PLATELET COUNT AUTOMATED 68 10*3/uL (130-400); RED BLOOD COUNT 3.85 10*6/uL (4.50-5.90); RED CELL DISTRI WIDTH 17.3 % (0-14.5); WHITE BLOOD COUNT 7.7 10*3/uL (4.8-10.8)
[2021-06-14 08:00] VITALS: BP 114/52
[2021-06-14] MEDS ORDERED: PROPRANOLOL HCL10 MG PO (08:55)
[2021-06-14] MEDS ORDERED: METHIMAZOLE5 M1 PO (09:12)
[2021-06-14] MEDS ORDERED: PRISTIQ50 MG PO (09:12)
[2021-06-14 12:00] VITALS: BP 111/53
== END 2021-06-14 14:05 | disposition home or self-care (01) | DRG 193 ==
LOC: ED 04:30 → 4E 06:50 → EDHOLD 06:50 → 4E 08:21
PROVIDERS: Internal Medicine; Internal Medicine Critical Care Medicine; ADMIT Internal Medicine; ATTEND Internal Medicine
PROC: 5A0935A Assistance with Respiratory Ventilation, Less than 24 Consecutive Hours, High Flow/Velocity Cannula (ICD-10-PCS; principal; 2021-06-08)
PROC: 0W9930Z Drainage of Right Pleural Cavity with Drainage Device, Percutaneous Approach (ICD-10-PCS; 2021-06-09)
DX: J18.9 Pneumonia, unspecified organism (principal); J96.20 Acute and chronic respiratory failure, unspecified whether with hypoxia or hypercapnia; E43 Unspecified severe protein-calorie malnutrition; G93.41 Metabolic encephalopathy; I50.33 Acute on chronic diastolic (congestive) heart failure; J90 Pleural effusion, not elsewhere classified; D62 Acute posthemorrhagic anemia; D61.818 Other pancytopenia; E87.2 Acidosis; K92.2 Gastrointestinal hemorrhage, unspecified; N17.9 Acute kidney failure, unspecified; F33.1 Major depressive disorder, recurrent, moderate; I47.2 Ventricular tachycardia; J44.9 Chronic obstructive pulmonary disease, unspecified; N18.31 Chronic kidney disease, stage 3a; Z20.822 Contact with and (suspected) exposure to COVID-19; K72.90 Hepatic failure, unspecified without coma; K70.31 Alcoholic cirrhosis of liver with ascites; K86.89 Other specified diseases of pancreas; E87.6 Hypokalemia; F41.1 Generalized anxiety disorder; E03.9 Hypothyroidism, unspecified; Z88.8 Allergy status to other drugs, medicaments and biological substances

== ENCOUNTER → 2021-06-24 | Outpatient (CLI) | payer SELFPAY ==
[~2021-06-24] MED LIST changes: +METHIMAZOLE5 M1 PO; +PRISTIQ50 MG PO; +PROPRANOLOL HCL10 MG PO
== END | disposition home or self-care (01) ==
LOC: RAD 12:32
PROVIDERS: ATTEND Family Medicine
DX: J98.11 Atelectasis (principal); J90 Pleural effusion, not elsewhere classified; R06.02 Shortness of breath

== ENCOUNTER → 2021-07-01 | Outpatient (CLI) | payer SELFPAY | END | disposition home or self-care (01) | LOC: RAD 14:08 | PROVIDERS: ATTEND Family Medicine | DX: J90 Pleural effusion, not elsewhere classified (principal); J18.9 Pneumonia, unspecified organism ==

== ENCOUNTER 2021-07-20 21:46 | Inpatient (IN) | payer SELFPAY ==
[~2021-07-20] VITALS: Ht 180.3 cm; Wt 93.1 kg
[2021-07-20 21:56] VITALS: BP 117/57
[2021-07-20 22:50] LABS: ALKALINE PHOSPHATASE 158 U/L (45-117); BUN 115 mg/dl (7-24); CHLORIDE 99 mmol/L (98-107); CREATININE 8.94 mg/dL (0.70-1.30); POTASSIUM 4.5 mmol/L (3.5-5.1); SGOT/AST 56 IU/L (3-35); SGPT/ALT 58 U/L (12-78); SODIUM 130 mmol/L (136-145); TOTAL PROTEIN 5.6 gm/dL (6.4-8.2)
[2021-07-20 23:01] LABS: ETHYL ALCOHOL < 3.0 mg/dl (<3)
[2021-07-20 23:07] LABS: BASO % 0.1 % (0.0-1.0); EOS # 0.7 10*3/uL (0.0-0.4); EOS % 6.6 % (1.0-4.0); HEMATOCRIT 25.7 % (42.0-52.0); LYMPH # 0.7 10*3/uL (1.3-4.4); LYMPH % 6.6 % (27.0-41.0); MEAN CELL VOLUME 90.8 fl (80.0-94.0); MEAN CORPUSCULAR HGB CONC 33.1 g/dl (33.0-37.0); MEAN PLATELET VOLUME 11.7 fl (9.6-12.3); MONO # 0.8 10*3/uL (0.1-1.0); MONO % 7.9 % (3.0-9.0); NEUT # 7.8 10*3/uL (2.3-7.9); NEUT % 78.4 % (47.0-73.0); PLATELET COUNT AUTOMATED 106 10*3/uL (130-400); RED BLOOD COUNT 2.83 10*6/uL (4.50-5.90); RED CELL DISTRI WIDTH 21.3 % (0-14.5)
[2021-07-21 00:46] VITALS: BP 152/62; BP 152/81
[2021-07-21 01:12] LABS: BILIRUBIN Negative (Negative); BLOOD Negative (Negative); CLARITY Clear (Clear); COLOR Yellow (Yellow); GLUCOSE Negative (Negative); KETONE Negative (Negative); LEUKO ESTERASE 2+ (Negative); NITRITE Negative (Negative); SPECIFIC GRAVITY 1.015 (1.001-1.030); UROBILINOGEN 0.2 E.U./dl (0.0-1.0)
[2021-07-21 01:19] LABS: EPITHELIAL CELLS 16-20; WBC 31-40 wbc/hpf (0-5)
[2021-07-21 01:20] LABS: BACTERIA 1+; URINE AMPHETAMINES < 1000 (1000ng/ml); URINE BARBITURATES < 200 (200ng/ml); URINE BENZODIAZEPINES < 200 (200ng/ml); URINE CANNABINOIDS (THC) > 50 (50ng/ml); URINE COCAINE < 300 (300ng/ml); URINE METHADONE < 300 (300ng/ml); URINE OPIATES < 300 (300ng/ml)
[2021-07-21 01:21] LABS: URINE PHENCYCLIDINE < 25 (25ng/ml)
[2021-07-21 04:18] VITALS: BP 105/50
[2021-07-21 06:21] LABS: BASO % 0.1 % (0.0-1.0); EOS # 1.2 10*3/uL (0.0-0.4); EOS % 12.3 % (1.0-4.0); HEMATOCRIT 25.6 % (42.0-52.0); LYMPH # 0.6 10*3/uL (1.3-4.4); LYMPH % 5.9 % (27.0-41.0); MEAN CELL VOLUME 90.5 fl (80.0-94.0); MEAN CORPUSCULAR HGB CONC 33.2 g/dl (33.0-37.0); MEAN PLATELET VOLUME 11.1 fl (9.6-12.3); MONO # 0.9 10*3/uL (0.1-1.0); MONO % 9.7 % (3.0-9.0); NEUT # 6.9 10*3/uL (2.3-7.9); NEUT % 71.7 % (47.0-73.0); PLATELET COUNT AUTOMATED 82 10*3/uL (130-400); RED BLOOD COUNT 2.83 10*6/uL (4.50-5.90); RED CELL DISTRI WIDTH 21.4 % (0-14.5); WHITE BLOOD COUNT 9.6 10*3/uL (4.8-10.8)
[2021-07-21 06:54] LABS: CREATININE 8.41 mg/dL (0.70-1.30); POTASSIUM 4.1 mmol/L (3.5-5.1)
[2021-07-21 08:00] VITALS: BP 100/50; BP 115/50
[2021-07-21 12:00] VITALS: BP 00/43
[2021-07-21 16:00] VITALS: BP 100/45; BP 110/60
[2021-07-21 16:30] LABS: CREATININE 8.3 mg/dL (0.70-1.30); TOTAL PROTEIN 5.1 gm/dL (6.4-8.2)
[2021-07-21 20:00] VITALS: BP 99/44
[2021-07-22] VITALS: BP 95/42
[2021-07-22 07:18] LABS: FERRITIN 47.7 ng/mL (22.0-322.0)
[2021-07-22 08:00] VITALS: BP 130/60
[2021-07-22 08:24] LABS: CREATININE 7.85 mg/dL (0.70-1.30); POTASSIUM 3.8 mmol/L (3.5-5.1)
[2021-07-22 12:00] VITALS: BP 135/56; BP 98/56
[2021-07-22 16:00] VITALS: BP 120/52
[2021-07-22 16:37] LABS: CREATININE 7.27 mg/dL (0.70-1.30); POTASSIUM 3.5 mmol/L (3.5-5.1)
[2021-07-22 20:00] VITALS: BP 105/44
[2021-07-23] VITALS: BP 102/41
[2021-07-23 06:58] LABS: CREATININE 6.87 mg/dL (0.70-1.30); POTASSIUM 3.3 mmol/L (3.5-5.1)
[2021-07-23 08:00] VITALS: BP 116/46
[2021-07-23 12:00] VITALS: BP 100/42
[2021-07-23 16:00] VITALS: BP 111/42
[2021-07-23 20:00] VITALS: BP 106/50
[2021-07-24] VITALS: BP 111/47
[2021-07-24 05:27] LABS: CREATININE 6.07 mg/dL (0.70-1.30)
[2021-07-24 06:26] LABS: BASO % 0.1 % (0.0-1.0); EOS # 0.4 10*3/uL (0.0-0.4); EOS % 4.4 % (1.0-4.0); HEMATOCRIT 22.9 % (42.0-52.0); LYMPH # 0.5 10*3/uL (1.3-4.4); LYMPH % 6.1 % (27.0-41.0); MEAN CELL VOLUME 93.1 fl (80.0-94.0); MEAN CORPUSCULAR HGB 30.5 pg (27.0-31.0); MEAN CORPUSCULAR HGB CONC 32.8 g/dl (33.0-37.0); MEAN PLATELET VOLUME 11.8 fl (9.6-12.3); MONO # 0.8 10*3/uL (0.1-1.0); MONO % 9.2 % (3.0-9.0); NEUT # 7.1 10*3/uL (2.3-7.9); NEUT % 79.6 % (47.0-73.0); PLATELET COUNT AUTOMATED 76 10*3/uL (130-400); RED BLOOD COUNT 2.46 10*6/uL (4.50-5.90); RED CELL DISTRI WIDTH 22.2 % (0-14.5); WHITE BLOOD COUNT 8.9 10*3/uL (4.8-10.8)
[2021-07-24 08:00] VITALS: BP 110/52
[2021-07-24 12:00] VITALS: BP 110/50
[2021-07-24 16:00] VITALS: BP 112/52
[2021-07-24 20:00] VITALS: BP 98/42
[2021-07-25] VITALS (7 sets, daily range): BP systolic 88–111; BP diastolic 38–64
[2021-07-25 04:13] LABS: RBC 41-50 rbc/hpf (0-2)
[2021-07-25 04:14] LABS: BACTERIA TRACE; WBC 21-30 wbc/hpf (0-5)
[2021-07-25 06:05] LABS: BASO % 0.1 % (0.0-1.0); EOS # 0.1 10*3/uL (0.0-0.4); EOS % 1.4 % (1.0-4.0); HEMATOCRIT 23.1 % (42.0-52.0); LYMPH # 0.5 10*3/uL (1.3-4.4); LYMPH % 5.2 % (27.0-41.0); MEAN CELL VOLUME 93.9 fl (80.0-94.0); MEAN CORPUSCULAR HGB 30.5 pg (27.0-31.0); MEAN CORPUSCULAR HGB CONC 32.5 g/dl (33.0-37.0); MONO # 0.8 10*3/uL (0.1-1.0); MONO % 7.5 % (3.0-9.0); NEUT # 8.7 10*3/uL (2.3-7.9); NEUT % 84.6 % (47.0-73.0); PLATELET COUNT AUTOMATED 77 10*3/uL (130-400); RED BLOOD COUNT 2.46 10*6/uL (4.50-5.90); RED CELL DISTRI WIDTH 22.5 % (0-14.5); WHITE BLOOD COUNT 10.3 10*3/uL (4.8-10.8)
[2021-07-25 06:17] LABS: CREATININE 5.74 mg/dL (0.70-1.30); POTASSIUM 3.7 mmol/L (3.5-5.1)
[2021-07-25 12:17] LABS: BODY FLUID WBC 62 /uL
[2021-07-25 13:01] LABS: BF LYMPHOCYTES 26 %; BF MACROPHAGES 47 %; BF NEUTROPHILS 27 %
[2021-07-26] VITALS (9 sets, daily range): BP systolic 90–119; BP diastolic 40–56
[2021-07-26 06:31] LABS: MEAN CELL VOLUME 95.4 fl (80.0-94.0); MEAN CORPUSCULAR HGB 30.9 pg (27.0-31.0); MEAN CORPUSCULAR HGB CONC 32.4 g/dl (33.0-37.0); MEAN PLATELET VOLUME 12.3 fl (9.6-12.3); NUCLEATED RED BLOOD CELL 0.3 % (0.0-0.0); PLATELET COUNT AUTOMATED 71 10*3/uL (130-400); RED BLOOD COUNT 2.17 10*6/uL (4.50-5.90); WHITE BLOOD COUNT 7.8 10*3/uL (4.8-10.8)
[2021-07-26 06:40] LABS: HEMATOCRIT 20.7 % (42.0-52.0); MANUAL DIFF REFLEX YES
[2021-07-26 06:42] LABS: CREATININE 5.61 mg/dL (0.70-1.30); POTASSIUM 3.3 mmol/L (3.5-5.1)
[2021-07-26 07:05] LABS: POLYCHROMASIA SLIGHT; TOTAL CELLS COUNTED 100 #CELLS
[2021-07-26 07:06] LABS: BURR CELLS FEW; OVALOCYTES FEW; PLATELET SUFFICIENCY LOW (NORMAL)
[2021-07-26 16:38] LABS: EOS # 0.8 10*3/uL (0.0-0.4); EOS % 9.1 % (1.0-4.0); HEMATOCRIT 24.2 % (42.0-52.0); LYMPH # 0.6 10*3/uL (1.3-4.4); LYMPH % 6.8 % (27.0-41.0); MEAN CORPUSCULAR HGB 28.8 pg (27.0-31.0); MEAN CORPUSCULAR HGB CONC 32.2 g/dl (33.0-37.0); MEAN PLATELET VOLUME 11.2 fl (9.6-12.3); MONO # 0.8 10*3/uL (0.1-1.0); MONO % 8.5 % (3.0-9.0); NEUT # 6.9 10*3/uL (2.3-7.9); NEUT % 74.8 % (47.0-73.0); NUCLEATED RED BLOOD CELL 0.2 % (0.0-0.0); PLATELET COUNT AUTOMATED 74 10*3/uL (130-400); RED BLOOD COUNT 2.71 10*6/uL (4.50-5.90); RED CELL DISTRI WIDTH 23.2 % (0-14.5); WHITE BLOOD COUNT 9.2 10*3/uL (4.8-10.8)
[2021-07-26 16:45] LABS: MEAN CELL VOLUME 89.3 fl (80.0-94.0)
[2021-07-27] VITALS: BP 95/50
[2021-07-27 06:06] LABS: CREATININE 5.32 mg/dL (0.70-1.30); POTASSIUM 3.1 mmol/L (3.5-5.1); TOTAL PROTEIN 4.6 gm/dL (6.4-8.2)
[2021-07-27 06:37] LABS: BASO % 0.1 % (0.0-1.0); EOS # 0.6 10*3/uL (0.0-0.4); EOS % 6.9 % (1.0-4.0); HEMATOCRIT 23.9 % (42.0-52.0); LYMPH # 0.5 10*3/uL (1.3-4.4); LYMPH % 6.3 % (27.0-41.0); MEAN CELL VOLUME 89.8 fl (80.0-94.0); MEAN CORPUSCULAR HGB 29.7 pg (27.0-31.0); MEAN CORPUSCULAR HGB CONC 33.1 g/dl (33.0-37.0); MEAN PLATELET VOLUME 11.7 fl (9.6-12.3); MONO # 0.6 10*3/uL (0.1-1.0); MONO % 7.2 % (3.0-9.0); NEUT # 6.6 10*3/uL (2.3-7.9); NEUT % 78.1 % (47.0-73.0); PLATELET COUNT AUTOMATED 70 10*3/uL (130-400); RED BLOOD COUNT 2.66 10*6/uL (4.50-5.90); RED CELL DISTRI WIDTH 24.3 % (0-14.5); WHITE BLOOD COUNT 8.5 10*3/uL (4.8-10.8)
[2021-07-27 08:00] VITALS: BP 90/42
[2021-07-27 12:00] VITALS: BP 82/42
[2021-07-27 16:00] VITALS: BP 92/48
[2021-07-27 20:00] VITALS: BP 95/44
[2021-07-28] VITALS: BP 87/44
[2021-07-28 06:09] LABS: BASO % 0.1 % (0.0-1.0); EOS # 1.3 10*3/uL (0.0-0.4); HEMATOCRIT 23.3 % (42.0-52.0); LYMPH # 0.5 10*3/uL (1.3-4.4); LYMPH % 6.7 % (27.0-41.0); MEAN CELL VOLUME 90.7 fl (80.0-94.0); MEAN CORPUSCULAR HGB 30.4 pg (27.0-31.0); MEAN CORPUSCULAR HGB CONC 33.5 g/dl (33.0-37.0); MEAN PLATELET VOLUME 11.5 fl (9.6-12.3); MONO # 0.5 10*3/uL (0.1-1.0); MONO % 7.1 % (3.0-9.0); NEUT % 67.5 % (47.0-73.0); PLATELET COUNT AUTOMATED 66 10*3/uL (130-400); RED BLOOD COUNT 2.57 10*6/uL (4.50-5.90); RED CELL DISTRI WIDTH 24.7 % (0-14.5); WHITE BLOOD COUNT 7.5 10*3/uL (4.8-10.8)
[2021-07-28 06:15] LABS: CREATININE 5.08 mg/dL (0.70-1.30); POTASSIUM 3.4 mmol/L (3.5-5.1)
[2021-07-28 08:00] VITALS: BP 108/42; BP 64/48
[2021-07-28 12:00] VITALS: BP 99/43
[2021-07-28 16:00] VITALS: BP 90/45
[2021-07-28 20:00] VITALS: BP 92/36
[2021-07-28 20:30] VITALS: BP 94/40
[2021-07-29] VITALS: BP 88/41
[2021-07-29 00:24] VITALS: BP 92/42
[2021-07-29 08:00] VITALS: BP 80/40; BP 92/40
[2021-07-29 12:00] VITALS: BP 90/38
[2021-07-29 15:49] VITALS: BP 109/49
[2021-07-29 20:00] VITALS: BP 90/42
[2021-07-30] VITALS: BP 96/42
[2021-07-30 06:39] LABS: MEAN CELL VOLUME 90.9 fl (80.0-94.0); MEAN CORPUSCULAR HGB 29.8 pg (27.0-31.0); MEAN CORPUSCULAR HGB CONC 32.8 g/dl (33.0-37.0); MEAN PLATELET VOLUME 11.5 fl (9.6-12.3); PLATELET COUNT AUTOMATED 92 10*3/uL (130-400); RED BLOOD COUNT 3.19 10*6/uL (4.50-5.90); RED CELL DISTRI WIDTH 25.8 % (0-14.5); WHITE BLOOD COUNT 18.1 10*3/uL (4.8-10.8)
[2021-07-30 06:48] LABS: MANUAL DIFF REFLEX YES
[2021-07-30 06:59] LABS: POTASSIUM 3.8 mmol/L (3.5-5.1)
[2021-07-30 07:00] LABS: CREATININE 4.93 mg/dL (0.70-1.30)
[2021-07-30 07:30] LABS: BURR CELLS FEW; PLATELET SUFFICIENCY LOW (NORMAL); POLYCHROMASIA SLIGHT; ROULEAUX SLIGHT; SCHISTOCYTES FEW; TOTAL CELLS COUNTED 100 #CELLS; TOXIC GRANULATION SLIGHT
[2021-07-30 08:00] VITALS: BP 99/30
[2021-07-30 12:00] VITALS: BP 94/46
[2021-07-30 16:00] VITALS: BP 97/44
[2021-07-30 20:00] VITALS: BP 93/50
[2021-07-31] VITALS: BP 99/40
[2021-07-31 08:00] VITALS: BP 94/44
[2021-07-31 12:00] VITALS: BP 96/54
== END 2021-07-31 17:16 | disposition short-term general hospital (02) | DRG 166 ==
LOC: ED 21:46 → 4E 07-21 00:24 → EDHOLD 07-21 00:24 → 4E 07-21 02:25
PROVIDERS: Internal Medicine; Internal Medicine Critical Care Medicine; Internal Medicine Nephrology; ADMIT Internal Medicine; ATTEND Internal Medicine
PROC: 0W9940Z Drainage of Right Pleural Cavity with Drainage Device, Percutaneous Endoscopic Approach (ICD-10-PCS; principal; 2021-07-25)
PROC: 5A0935A Assistance with Respiratory Ventilation, Less than 24 Consecutive Hours, High Flow/Velocity Cannula (ICD-10-PCS; 2021-07-25)
PROC: 30233N1 Transfusion of Nonautologous Red Blood Cells into Peripheral Vein, Percutaneous Approach (ICD-10-PCS; 2021-07-26)
DX: J18.9 Pneumonia, unspecified organism (principal); N17.1 Acute kidney failure with acute cortical necrosis; E43 Unspecified severe protein-calorie malnutrition; J96.01 Acute respiratory failure with hypoxia; J91.8 Pleural effusion in other conditions classified elsewhere; E87.2 Acidosis; E87.1 Hypo-osmolality and hyponatremia; D61.818 Other pancytopenia; J98.11 Atelectasis; E72.20 Disorder of urea cycle metabolism, unspecified; K72.90 Hepatic failure, unspecified without coma; F17.210 Nicotine dependence, cigarettes, uncomplicated; R62.7 Adult failure to thrive; K86.89 Other specified diseases of pancreas; K70.31 Alcoholic cirrhosis of liver with ascites; N18.31 Chronic kidney disease, stage 3a; D50.9 Iron deficiency anemia, unspecified; E03.9 Hypothyroidism, unspecified; Z88.8 Allergy status to other drugs, medicaments and biological substances; Z79.899 Other long term (current) drug therapy; Z68.28 Body mass index [BMI] 28.0-28.9, adult